=== PATIENT | male | born 1950 | race Caucasian/White ===

== ENCOUNTER 2016-11-01 10:00 | Inpatient (IN) | payer MEDICARE, OTHER ==
[~2016-11-01] VITALS: Ht 167.6 cm; Wt 97.6 kg
--- NOTE | ~2016-11-01 | DS ---
PATIENT'S NAME: WILLIS AYALA [facility] AGE: 66 Y [address] ROOM: [address] [place], [place] [address] LOCATION: [facility] [place] ADMIT DATE: 11/01/2016 Discharge Summary DISCHARGE DATE: 11/06/2016 FAMILY PHYSICIAN: Joana Sauer MD ATTENDING PHYSICIAN: Han Albert PRIMARY DIAGNOSES: 1. Chronic diarrhea, probably secondary to diabetic autonomic neuropathy. 2. Diabetes, type 2 with hypoglycemia. 3. Chronic kidney disease, stage 3. 4. Obstructive sleep apnea. PRINCIPAL PROCEDURES: Done for the patient include colonoscopy by Dr. Warner. LABORATORY DATA: Labs during the hospital stay, ABG venous: PH 7.29. WBC on admission was 12.9 and prior to discharge was 9.8. H and H were stable throughout the hospital stay at 13.8/37.8. Platelets were 121. Sodium was markedly stable throughout hospital stay; the highest level obtained was 146 and prior to discharge was 138. Potassium on discharge was 3.5, and was repleted prior to discharge. Phosphorus lowest level obtained was 1.3, was repleted, and prior to discharge was 3.0. Hemoglobin A1c was 6.8. Vitamin B12 level was 304 and folate was 15.2. Procalcitonin on admission was 0.27 and repeat was 0.24. Serotonin release assay was still pending at the time of discharge. Antibody to tissue transglutaminase value was less than 0.5. CMV DNA to PCR was not detected on the colon biopsy. Microbiology stool analysis, fecal fat was negative. Stool for C. diff was negative. Stool for white blood cells was not observed. Occult blood was positive. Pathology report on the colon biopsy, small bowel mucosa; terminal ileum biopsies with normal villous architecture without diagnostic alteration. Negative for CMV cytopathic change. Colonic mucosa random biopsies, no diagnostic alterations. Negative for colitis. Negative for CMV cytopathic change. RADIOLOGY: Chest x-ray, no acute infiltrate. Renal ultrasound with mildly atrophic-appearing kidneys bilaterally, worse on the right side. Right renal cyst measuring 1.4 cm. No evidence of hydronephrosis or solid renal mass. HOSPITAL COURSE: For history of present illness, please take a look at the H and P, which was done by Dr. Albert. The patient was admitted to Medical- Surgical Unit, and had a GI consult for his chronic diarrhea. After the patient was reviewed by the Gastroenterology team, they recommended a colonoscopy, and also recommended the patient to be on rifaximin as a presumptive treatment for bacterial overgrowth. Also, the patient did get a PATIENT'S NAME: WILLIS AYALA [facility] AGE: 66 Y [address] ROOM: [place] [address] LOCATION: [facility] ADMIT DATE: 11/01/2016 Discharge Summary DISCHARGE DATE: 11/06/2016 FAMILY PHYSICIAN: Joana Sauer MD ATTENDING PHYSICIAN: Han Albert Renal consult, given his acute kidney injury on chronic kidney disease. For this, his nephrotoxic medications of lisinopril and hydrochlorothiazide were put on hold by the sales development representative. By the next day, the patient did get his colonoscopy done. Procedure was well tolerated by the patient without any intraoperative or postoperative complications. Following this, he was continued on his rifaximin. Plan was for him to get this for a total of 10 days. His stool studies too were negative for C. diff and negative for any ova and parasite. Following this, he was started on the Imodium. With progression in his hospital stay, his frequency of diarrhea did get better. It reduced down to about 6 to 7 per day with improved consistency. The Renal team did recommend to re-start his hydrochlorothiazide by the 05 of November, and also recommended to re-start his lisinopril by the . Following this, they signed off. The Imodium which the patient was placed on did not do much as to help with the frequency of his diarrhea. Following the pathology report of his colon biopsy, it was concluded that most probably the patient's chronic diarrhea could be as a complication of his diabetes resulting from diabetic autonomic neuropathy. At this point, GI recommended for patient to be on Lomotil, which helped to reduce the frequency of his diarrhea significantly to about 2 to 3 per day prior to discharge. During his hospital stay, he did also complain of some loss of appetite, which improved with his hospital stay. His diabetes was also within reasonably good control as well during his hospital stay. His GFR also was stable with some improvement, and during his hospital stay, he did also develop some hyponatremia which improved with D5 water. On the day of discharge, the patient's frequency of diarrhea had reduced to two, with also improved consistency in his stool. He was in high spirits and wanted to be discharged, and the patient was discharged home while his vital signs were stable. DISCHARGE INSTRUCTIONS: Include he is to follow up with his family doctor in the next 3 to 4 days. He has a GI Clinic appointment in two weeks. MEDICATIONS UPON DISCHARGE: Include 1. Norvasc 10 mg p.o. daily. 2. Chlorthalidone 25 mg p.o. daily. 3. Gabapentin 900 mg p.o. at bedtime. 4. Insulin lispro subcu 3 times daily with meals. 5. Lantus 20 units subcu twice daily. 6. Lisinopril 10 mg p.o. daily. 7. Metoprolol 12.5 mg p.o. twice daily. 8. Zocor 20 mg p.o. at bedtime. 9. Trazodone 50 mg p.o. at bedtime. 10. Imodium 2 mg p.o. as needed for each loose stool. 11. Multivitamin one tablet p.o. daily. 12. Sublingual nitroglycerin 0.4 mg tablet p.r.n. 13. CPAP. PATIENT'S NAME: WILLIS AYALA [facility] AGE: 66 Y [address] ROOM: [place] [address] LOCATION: [facility] ADMIT DATE: 11/01/2016 Discharge Summary DISCHARGE DATE: 11/06/2016 FAMILY PHYSICIAN: Joana Sauer MD ATTENDING PHYSICIAN: Han Albert 14. Vitamin B12, 1000 mcg p.o. q.a.m. 15. Tylenol Extra Strength 1 g p.o. q.6 hours. 16. Melatonin 5 mg p.o. at bedtime. 17. Lomotil 5 mg q.6 hours p.o. p.r.n. 18. Rifaximin 550 mg t.i.d. p.o. for an additional of eight more days to make it a total of ten days of rifaximin. Discharge time spent on this patient was approximately 35 minutes, which included extensive counseling on his diabetes control. MD ISRAEL HARTMAN/modl /[id number] d: 11/07/16 0424 t: 11/10/16 1429, DISCHARGE SUMMARY
--- NOTE | ~2016-11-01 | HP ---
PATIENT'S NAME: WILLIS AYALA [facility] AGE: 66 Y [address] ROOM: [address] [place], [place] [address] [place]: [facility] [place] ADMIT DATE: 11/01/2016 History & Physical DISCHARGE DATE: FAMILY PHYSICIAN: DANIELA DERAS MD ATTENDING PHYSICIAN: AMINA ESPINOSA DATE OF SERVICE: CHIEF COMPLAINT: Daily watery diarrhea of green and yellow color associated with decreased appetite and weight loss with onset of 4 weeks ago. HISTORY OF PRESENT ILLNESS: This is a 66-year-old male, who says that roughly 4 weeks ago, he started to experience loose stool roughly about 3-4 episodes per day for the first week and then followed by 2-3 episodes of loose stool per hour in the last 2 weeks on a daily basis. The loose stool is described as a watery diarrhea with yellow and greenish color. He states that a few times, but very few times he saw maybe some black stool, but is not every single time. He does not feel well in general. Therefore, he has been having very poor appetite, has not been eating or drinking much. He has lost about 30 pounds in the last 4 weeks. He denies any fever or chills, chest pain or shortness of breath, nausea or vomiting, or any abdominal pain. He also denies any recent outside the state travel or any sick contact or eating anything different recently. He also has never had this problem before. He also noticed some decrease in urine output in the last 4 weeks as well. The patient was evaluated in the outside facility, and multiple studies were performed including a CT of the abdomen and pelvis with oral contrast due to the kidney failure, that was done yesterday on October 31, 2016. I do not have the official report. But based on the written documentation and the telephone information that was given to me by the transferring physician, it was read as unremarkable. I have put a request for the official reading report to be faxed here. The patient also had stool study including 2 stools negative for C. diff, study was also negative for Helicobacter pylori urea breath test, negative Giardia, negative ova and parasite, and negative for Salmonella and Shigella and Campylobacter. Kidney function was also found to be 2.55 of creatinine and a GFR of 27 yesterday from the outside facility. When I look at our [facility] back in September 2015, his GFR was 34 and creatinine was 2.0 at that time. The patient does know he chronically has CKD stage 3 with GFR baseline 35. The patient was later transferred here for further care. REVIEW OF SYSTEMS: As mentioned in the history of present illness. All other systems were reviewed and they were negative except those mentioned in the history of present illness. PATIENT'S NAME: WILLIS AYALA [facility] AGE: 66 Y [address] ROOM: [place] [address] LOCATION: [facility] [place] ADMIT DATE: 11/01/2016 History & Physical DISCHARGE DATE: FAMILY PHYSICIAN: DANIELA DERAS MD ATTENDING PHYSICIAN: AMINA ESPINOSA PAST MEDICAL HISTORY: 1. Severe aortic stenosis with peak velocity of 4 and mean gradient of 38 mmHg and valve area of 1.33 cm2. This was done on the transthoracic echo back in September 2016. At that time, also showed grade 1 diastolic dysfunction. 2. Hypertension. 3. Diabetes type 1. 4. CKD, stage 3, per patient the GFR banner is 35. 5. Hyperlipidemia. 6. Obstructive sleep apnea, on home CPAP. ALLERGIES: NO KNOWN DRUG ALLERGIES. HOME MEDICATIONS: 1. Tylenol 1 g p.o. every 6 hours p.r.n. pain or fever. 2. Amlodipine 10 mg p.o. daily. 3. Chlorthalidone 25 mg p.o. daily. 4. CPAP at night. 5. Vitamin B12, 1000 mcg p.o. daily. 6. Gabapentin 900 mg p.o. daily. 7. Insulin glargine 22 units subcu twice daily. 8. Insulin lispro sliding scale three times a day with meals. 9. Lisinopril 10 mg p.o. daily. 10. Melatonin 5 mg p.o. every night at bedtime. 11. Lopressor 12.5 mg p.o. b.i.d. 12. Flagyl 500 mg p.o. b.i.d. 13. Multivitamin 1 tablet p.o. daily. 14. Nitroglycerin sublingual 0.4 mg p.r.n. for chest pain. 15. Simvastatin 20 mg p.o. daily at night at bedtime. 16. Trazodone 50 mg p.o. at bedtime. SOCIAL HISTORY: He denies any alcohol or any illegal drug use or cigarette smoking. PAST SURGICAL HISTORY: Status post cataract surgery in the past. FAMILY HISTORY: Father has diabetes type 1 and also from heart failure complication at age 60s. Mother from old age from a cause that he could not remember. PHYSICAL EXAMINATION: PATIENT'S NAME: WILLIS AYALA [facility] AGE: 66 Y [address] ROOM: [place] [address] LOCATION: [facility] [place] ADMIT DATE: 11/01/2016 History & Physical DISCHARGE DATE: FAMILY PHYSICIAN: DANIELA DERAS MD ATTENDING PHYSICIAN: AMINA ESPINOSA VITAL SIGNS: At the time of my dictation, temperature 98, blood pressure is 132/86, respiration is 14, heart rate is 80, saturation is 97% on room air. GENERAL APPEARANCE: Alert and oriented x3, in no acute distress. HEENT: Pupils are equally round and reactive to light. Extraocular muscles are intact. Anicteric sclerae. Nasal turbinates are normal bilaterally. Moist oral mucosa. NECK: No JVD. CARDIOVASCULAR: Murmur about intensity of 4, systolic. Normal S1, S2. Regular rate and rhythm. RESPIRATORY: Clear to auscultation. No rales. No rhonchi. No crackles. No wheezing. ABDOMEN: Soft, nontender, and nondistended. Bowel sounds present. No hepatosplenomegaly. No mass. No abdominal rigidity. EXTREMITIES: Edema in bilateral lower extremity which is chronic for the patient, and they are actually looking better than his usual edema. SKIN: No ulcer. No rash. No cyanosis. MUSCULOSKELETAL: No joint pain and also no muscle pain. NEUROLOGIC: Grossly nonfocal. LABORATORY DATA: White blood cell 10.1, hemoglobin 15.1, hematocrit 42.8, platelet 134. Glucose 196, BUN 51, creatinine 2.5, sodium 139, potassium 3.7, chloride 113, CO2 of 16, calcium 8.6, total protein 7.8, albumin 3.7, AST 29, ALT 38, alkaline phosphatase 85, total bilirubin 0.5, direct bilirubin 0.2, phosphorus 3.3, magnesium 2.4, anion gap 13.7, GFR 26. ESR pending. Hemoglobin A1c pending. INR 1.03. PTT 31. IMAGING STUDIES: CT scan of the abdomen and pelvis with oral contrast performed on October 31, 2016, from the outside facility: I have requested official written report to be faxed here. Based on the verbal report given to me over the phone by the outside transfer facility physician, it was unremarkable. ASSESSMENT AND PLAN: 1. Regarding his refractory diarrhea: I will consult Gastroenterology for further evaluation with colonoscopy. Right now, he can have bland diet. Nausea with IV Zofran p.r.n. if necessary. IV fluids for hydration. He has severe aortic stenosis. Therefore, I will give him normal saline at 60 mL/h. Watch for volume overload. Oxygen if needed by nasal cannula for saturation more than 94%. I will not repeat any stool study because everything was done already from the outside facility and all came back negative including Clostridium difficile twice, Campylobacter, Shigella, Salmonella, parasite and also ova. They all came back negative, PATIENT'S NAME: WILLIS AYALA [facility] AGE: 66 Y [address] ROOM: [place] [address] LOCATION: [facility] [place] ADMIT DATE: 11/01/2016 History & Physical DISCHARGE DATE: FAMILY PHYSICIAN: DANIELA DERAS MD ATTENDING PHYSICIAN: AMINA ESPINOSA including Helicobacter pylori from the urea breath test. The patient does not look septic to me. He does not have any leukocytosis. I think infectious cause is less likely. For now, continue with supportive care and wait for the colonoscopy procedure. I will also put a request for the outside facility to fax here the written report of the CT abdomen and pelvis that was done yesterday. Further plan will depend on the clinical course. 2. Regarding his severe aortic stenosis: Currently, the patient does not look volume overloaded. Actually, he looks dehydrated. I will give him IV fluids with normal saline at 60 mL/h slow rate maintenance, but continuously and watch carefully for volume overload and at the same time keep him hydrated. Increase oral intake. 3. Regarding his hypertension: Hold the blood pressure medication. Can resume if necessary. 4. Regarding his diabetes type 1: I will check A1c. Also use home insulin with Levemir, but I will cut down by half by using 11 units twice a day. I will also put sliding scale with moderate dose with NovoLog q.4 hours. In addition, I will do a carb count with 1 unit for 15 g of carb intake. Titrate the insulin dose as necessary. 5. Regarding his acute kidney injury on chronic kidney disease stage 3: IV hydration as mentioned before. In addition, I will do a complete abdominal ultrasound to look for the hydronephrosis or any kidney anatomy problem. In addition, I will put a Samuels catheter and also do strict in's and out's. I will get a urinalysis. I will do urine electrolytes. Further plan will depend on clinical course. Hydration with 3 amps of 50meq sodium bicarb then bicarb drip starting at 100cc and titrate as needed per renal panel. If initial hydration does not improve his kidney failure, will consult Nephrology. In addition, I will order urine protein creatinine ratio. I will watch his volume status carefully due to his severe aortic stenosis. 6. Regarding his obstructive sleep apnea: Continue home CPAP that the patient brought from home. 7. Regarding his deep venous thrombosis prophylaxis: I will hold the pharmacological agent in anticipation for a colonoscopy tomorrow. For now, I will do compression devices. CODE STATUS: He is a full code. Time spent in care on the day of admission was 50 minutes, where minutes for 30 minutes was spent on chart review, interview, and also physical examination. The remainder of time was spent on counseling, including going over the plan of care and also addressing all their questions to their satisfaction. The and the patient were in the room. Further plan depends on clinical course. AMINA ESPINOSA MD PATIENT'S NAME: WILLIS AYALA [facility] AGE: 66 Y [address] ROOM: [place] [address] LOCATION: [facility] [place] ADMIT DATE: 11/01/2016 History & Physical DISCHARGE DATE: FAMILY PHYSICIAN: DANIELA DERAS MD ATTENDING PHYSICIAN: AMINA ESPINOSA/david /[id number] D: T: 021 HISTORY & PHYSICAL
--- NOTE | ~2016-11-01 | CON ---
PATIENT'S NAME: WILLIS AYALA [facility] AGE: 66 Y [address] ROOM: [address] [place], [place] [address] LOCATION: [facility] ADMIT DATE: 11/01/2016 Consultation DISCHARGE DATE: FAMILY PHYSICIAN: DANIELA DERAS MD ATTENDING PHYSICIAN: HAN ESPINOSA DATE OF CONSULTATION: 11/02/2016 REFERRING PHYSICIAN: Han Espinosa MD REASON FOR CONSULTATION: Diarrhea and weight loss. HISTORY OF PRESENT ILLNESS: This is a very pleasant 66-year-old male who states approximately 4 weeks ago, he began to experience loose stools, roughly 3-4 episodes per day. Over the past 2 weeks, the frequency has increased to 4 bowel movements per hour. He describes the diarrhea as watery diarrhea with yellow and greenish color. He states that at some point, there could have been some "black stool," but not every single time. He denies any associated symptoms except for weight loss. He does state that he has lost approximately 30 pounds in the past month. He denies any associated fever, chills, chest pain, chest pressure, shortness of breath, nausea, vomiting, or abdominal pain. Occasionally, he will have some abdominal cramping prior to having a bowel movement. He has undergone an evaluation at outside facility with multiples stool studies as well as CT of the abdomen and pelvis due to kidney failure as this report is currently pending. Stool studies have been completed x2 with negative for C diff as well as Helicobacter pylori urea breath test. On evaluation, initial kidney function showed a creatinine of 2.55, a GFR of 27. The patient was then transferred to [facility] for definitive care. The patient was seen and examined. He again states that over the past 2 weeks, the frequency of the bowel movements have increased. He states that he has trouble sleeping secondary to having numerous bowel movements. He denies any associated bob abdominal pain with this. He has never had this type of episodes prior to his initial presentation. The patient currently denies any chest pain, chest pressure, shortness of breath, fever, or chills. He does state that he has had a 30-pound weight loss over the past month. PAST MEDICAL HISTORY: Severe aortic stenosis; grade 1 diastolic dysfunction; hypertension; diabetes type 1; chronic kidney disease stage III; hyperlipidemia; obstructive sleep apnea, on home CPAP. PAST SURGICAL HISTORY: Status post cataract surgery. He denies any history of colonoscopy. PATIENT'S NAME: WILLIS AYALA [facility] AGE: 66 Y [address] ROOM: [address] [place], [place] [address] LOCATION: [facility] [place] ADMIT DATE: 11/01/2016 Consultation DISCHARGE DATE: FAMILY PHYSICIAN: DANIELA DERAS MD ATTENDING PHYSICIAN: HAN ESPINOSA SOCIAL HISTORY: The patient is a ramon. He is . He denies any alcohol, tobacco, or illicit drug use. FAMILY HISTORY: The patient's father has diabetes type 1, and also from heart failure. The patient's mother from old age. ALLERGIES: NO KNOWN MEDICATION ALLERGIES. CURRENT MEDICATIONS: Please refer to the medication administration record. REVIEW OF SYSTEMS: An all-point review of systems was completed. All were negative except for those identified in the history of present illness. PHYSICAL EXAMINATION: GENERAL: A very pleasant, 66-year-old male, who appears to be in no acute distress. VITAL SIGNS: Temperature 97.6, pulse of 56, respirations of 18, blood pressure 139/64, oxygen saturation is 95% on room air. SKIN: [place], warm, dry. No jaundice. HEENT: Head is normocephalic and atraumatic. Pupils are equal, round, and reactive to light. Sclerae are clear. Nonicteric. Oral mucosa is pink and moist. No thyromegaly. NECK: Soft and supple. CARDIOVASCULAR: Regular. Normal S1, S2. RESPIRATORY: Respirations are even and unlabored. LUNGS: Clear to auscultation. ABDOMEN: Soft, round, nontender, and nondistended. Bowel sounds positive x4 quadrants. MUSCULOSKELETAL: No muscle weakness or atrophy. EXTREMITIES: No clubbing, cyanosis, or edema. NEUROLOGIC: Grossly nonfocal. LABS AND DIAGNOSTICS: Laboratory obtained at [facility] did include a CBC with a white blood cell count of 10.1, hemoglobin of 15.1, hematocrit of 42.8, and platelets of 134. Chemistry panel includes a glucose of 196, BUN of 51, creatinine 2.5. Sodium 139, potassium 3.7, chloride of 113, CO2 of 16. Liver function tests are within normal limits. PATIENT'S NAME: WILLIS AYALA [facility] AGE: 66 Y [address] ROOM: [address] [place], [place] [address] LOCATION: [facility] [place] ADMIT DATE: 11/01/2016 Consultation DISCHARGE DATE: FAMILY PHYSICIAN: DANIELA DERAS MD ATTENDING PHYSICIAN: HAN ESPINOSA ASSESSMENT AND PLAN: Again, this is a very pleasant, 66-year-old gentleman who was transferred to [facility] for definitive care. He has had a diarrhea over the past 4 weeks, though has intensified in the past 2 weeks with numerous bowel movements that he states are loose and watery without any blood or melena. The patient at this time is complaining of 4 episodes per hour. He denies any history of colonoscopy. In review of the patient's record, this could be diabetic diarrhea, though the patient denies any history of colonoscopy. We will complete a colonoscopy to evaluate the mucosa as well as obtain biopsies to rule out microscopic colitis. The patient will be given Suprep in preparation for the procedure. Further recommendations will be given status post colonoscopy. Thank you for this consult. VALDO ANDERSON APRN FOR MD AVELINO GONZALEZ/david /[id number] d: 11/02/16 0843 t: 11/08/16 0748, CONSULTATION REPORT
--- NOTE | ~2016-11-01 | CON ---
PATIENT'S NAME: WILLIS AYALA [facility] AGE: 66 Y [address] ROOM: [id number] [place], [place] [address] LOCATION: [facility] [place] ADMIT DATE: 11/01/2016 Consultation DISCHARGE DATE: FAMILY PHYSICIAN: DANIELA DERAS MD ATTENDING PHYSICIAN: AMINA ESPINOSA DATE OF CONSULTATION: 11/02/2016 REFERRING PHYSICIAN: Dr. Espinosa REASON FOR CONSULTATION: KIA on CKD. HISTORY OF PRESENT ILLNESS: A 66-year-old male with a history of hypertension, diabetes, CKD, stage 3 with baseline creatinine of around 2, hyperlipidemia, obstructive sleep apnea on home CPAP, severe aortic stenosis, admitted with a 1-month worth of diarrhea. The patient was also found to have some KIA with the creatinine went up from 2 to 2.5; although, nonoliguric. Nephrology consultation has been called for the same reason. The patient was apparently having loose stool roughly about 3-4 episodes per day initially and then slowly the frequency went up to 2 to 3 episodes of loose stool per hour for the last 2 weeks on a daily basis. Stool has been watery with yellow or greenish color and also has noticed some black tarry stool, having very poor appetite without much eating or drinking, and lost about 30 to 35 pounds in 4 weeks. Denied any fevers or chills. No chest pain, shortness of breath, nausea, vomiting, or abdominal pain. Notably, he also follows with Dr. Babb food technologist at [facility] in [place] and he was taking chlorthalidone for his hypertension. He was initially admitted to [facility], where they did a CT of abdomen and pelvis with oral contrast, which was apparently unremarkable and also the infectious workup came back negative. The patient had a colonoscopy today, which was essentially negative; but however, the biopsy report is still pending. He denied any urinary symptoms including dysuria, urgency, hesitancy, or nocturia. REVIEW OF SYSTEMS: GENERAL: No fever. No chills or rigor. HEENT: No sore throat. No sinus congestion. CVS: No chest pain. No exertional shortness of breath. No leg swelling. RESPIRATORY: No shortness of breath. No cough. No wheezing. GENITOURINARY: No pain with urination. No increased frequency. No nocturia. GASTROINTESTINAL: Complained of poor appetite, nausea, and diarrhea as mentioned in the HPI. NEUROLOGIC: No weakness. No seizures. SKIN: No rash. No itching. ALLERGIES: No seasonal allergy. No hayfever. ENDOCRINE: No heat intolerance. No cold intolerance. PSYCHIATRIC: No sadness. No crying spells. No history of panic attack. PATIENT'S NAME: WILLIS AYALA [facility] AGE: 66 Y [address] ROOM: [place] [address] LOCATION: [facility] [place] ADMIT DATE: 11/01/2016 Consultation DISCHARGE DATE: FAMILY PHYSICIAN: DANIELA DERAS MD ATTENDING PHYSICIAN: AMINA ESPINOSA ALLERGIES: NO KNOWN DRUG ALLERGIES. HOME MEDICATIONS: As per the chart. PAST MEDICAL HISTORY: 1. Severe aortic stenosis. 2. Hypertension. 3. Diabetes, type 1, insulin-dependent. 4. CKD, stage 3, prior baseline creatinine of 2, estimated GFR of 35. 5. Hyperlipidemia. 6. Obstructive sleep apnea, on CPAP. SOCIAL HISTORY: Denies alcohol, illegal drugs, or cigarette smoking. PAST SURGICAL HISTORY: Status post cataract surgery in the past. FAMILY HISTORY: Diabetes, type 1. Father had diabetes and heart failure, complication of heart failure at age 60 and from that. His mother from old age, but the exact cause is unknown. PHYSICAL EXAMINATION: VITAL SIGNS: Blood pressure 140s/60s, pulse 60, respiratory rate 16, and temperature 97.5. GENERAL: Not in apparent distress. HEAD: Dry mucous membrane. Atraumatic normocephalic. Bilateral PERRLA, EOMI. NECK: No JVD, thyromegaly or lymphadenopathy. CVS: S1 and S2 normal, regular rate and rhythm. No murmur, rub, gallop. CHEST: Bilateral air entry equal. No wheeze or rales. ABDOMEN: Soft, nontender, nondistended. Bowel sounds present. EXTREMITIES: No cyanosis, clubbing, jaundice. No dependent edema. MUSCULOSKELETAL: No limitation of range of motion. SKIN: No pallor, cyanosis, icterus. HOME CARE ADMINISTRATOR: Alert and oriented x3. No gross findings. LABORATORY DATA: WBC count 11.3, hemoglobin 14.1, and platelets 134. Chemistry sodium 144, potassium 3.1, chloride 114, bicarbonate 18, BUN 53, creatinine 2.5, glucose 240, calcium 8.5, total protein 7.8, and albumin 3.7. ESR 28. A1c 6.8, INR 1.03. Urinalysis specific gravity 1.020 with 1+ turbidity, 5 pH, trace leukocytes, positive protein, negative for glucose, blood, and bacteria. Urine wkauagp-gd-bnqdobrbpt ratio is 0.3, urine sodium is 29, urine creatinine is 125, procal is 0.27, urine urea is 740.PATIENT'S NAME: WILLIS AYALA [facility] AGE: 66 Y [address] ROOM: [address] [address] LOCATION: [facility] [place] ADMIT DATE: 11/01/2016 Consultation DISCHARGE DATE: FAMILY PHYSICIAN: DANIELA DERAS MD ATTENDING PHYSICIAN: AMINA ESPINOSA ASSESSMENT: 1. Acute kidney injury on chronic kidney disease, 3, baseline creatinine apparently 2, now is 2.5, currently nonoliguric. Syncope is presumably from hypertensive nephrosclerosis versus diabetic nephropathy, but without significant proteinuria, it point against diabetic nephropathy. Acute kidney injury is possibly secondary to acute tubular necrosis with significant diarrhea with poor oral intake while being on diuretic. We would recommend volume expansion for now; however, acute tubular necrosis will follow its own course and will take time initially to creatinine will go up then will stabilize before showing some improvement. We will strongly encourage to avoid nephrotoxins including NSAIDs and contrast media, hold chlorthalidone for now, which can best fit for the dehydration, avoid any hemodynamic insults and keep the MAP more than 65. Do a renal ultrasound. We will do a UA and urine lytes tomorrow again. Please do strict intake and output and daily standing weight. Regarding fluid administration, we will continue bicarb at 120 mL/hr for now. 2. Diabetes, type 1, with some evidence of diabetic retinopathy; however, no significant laser surgery in the past. Currently, on insulin and we will defer that management to the primary team. 3. Diarrhea, persistent for almost a week, has been persistent for almost a month. Colonoscopy essentially negative, infectious workup negative, biopsies pending for possible microscopic colitis or lymphocytic colitis; however, we also may need to rule out small bowel bacterial overgrowth especially in condition of diabetes. 4. Hypertension, withhold chlorthalidone, and continue amlodipine for now. We will see the blood pressure results and adjust dosing accordingly. 5. Hyperlipidemia, defer to the primary team. Thank you for allowing me to participate in this patient's care. We will closely monitor the patient's progress along with you. SINDY DESIR MD /david /[id number] d: 11/03/16 0045 t: 11/05/16 1011, CONSULTATION REPORT
[~2016-11-01 10:00] MED LIST: **HUMALOG*100 UNIT/M SUB-Q; CPAP INH; DESYREL50 MG PO; HUMALOG100 UNIT/3 SUB-Q; HYGROTON25 MG PO; LANTUS (IN100 UNIT/M SUB-Q; LOPRESSOR25 MG PO; NEURONTIN300 MG PO; NITROSTAT0.4 MG SL; NORVASC10 MG PO; PRINIVIL OR ZES10 MG PO; THERAGRAN-M1 TAB PO; TYLENOL PM EX-1 EACH PO; ZOCOR20 MG PO
[2016-11-01] MEDS ORDERED: HYGROTON25 MG PO (14:25)
[2016-11-01] MEDS ORDERED: VITAMIN B-121000 MCG PO (14:25)
[2016-11-01] MEDS ORDERED: MELATONIN5 M2 PO (14:26)
[2016-11-01] MEDS ORDERED: TYLENOL EXTRA500 MG PO (14:26)
[2016-11-01] MEDS ORDERED: FLAGYL500 M1 PO (14:47)
[2016-11-01 15:00] LABS: BASOPHIL % 0.4 %; EOSINOPHIL # 0.1 K/uL (0.0-0.5); EOSINOPHIL % 0.9 %; HEMATOCRIT 42.8 % (37.0-53.0); HEMOGLOBIN 15.1 g/dL (11.0-16.0); IMMATURE GRANULOCYTE % 0.2 %; LYMPHOCYTE % 10.2 %; MCH 31.1 pg (27.0-34.0); MCHC 35.3 gm/dL (32.0-36.5); MCV 88.1 fl (83.0-98.0); MONOCYTE # 0.5 K/uL (0.0-1.0); MONOCYTE % 4.8 %; MPV 9.3 fl (9.4-12.4); NEUTROPHIL # (ANC) 8.4 K/uL (1.4-9.0); NEUTROPHIL % 83.5 %; NRBC % 0 /100WBC (0-0.00); PLATELET COUNT 134 K/uL (150-450); RBC 4.86 M/uL (3.50-5.50); RDW-CV 12.3 % (11.9-14.6); WBC 10.1 K/uL (4.0-11.0)
--- NOTE | 2016-11-01 15:00 | NUR ---
Pt is 66 y/o male admit for diarrhea/dehydration for hospitalist. Pt alert and oriented x3. Resides at home with his . No allergies. Pt unsteady due to knee OA and weakness. Having frequent stools about every 15-20 minutes. Hx sleep apnea-wears CPAP,htn,hypercholest,valve disease,murmur,diarrhea x 4 weeks,chronic renal disease,nocturia,DM type 1. Came via private car from [place]. at bedside.
[2016-11-01 15:14] LABS: INR - (THERAPEUTIC) 1.03 (0.92-1.07); PROTIME 10.8 SECONDS (9.8-11.4); PTT 31 SECONDS (25-32)
[2016-11-01 15:22] LABS: ALBUMIN 3.7 gm/dL (3.5-5.0); CALCIUM 8.6 mg/dL (8.5-10.5); CREATININE 2.5 mg/dL (0.6-1.3); MAGNESIUM 2.4 mg/dL (1.8-2.6); PHOSPHORUS 3.3 mg/dL (2.5-4.9); POTASSIUM 3.7 mMol/L (3.7-5.1); TOTAL BILIRUBIN 0.5 mg/dL (0.0-1.5); TOTAL PROTEIN 7.8 g/dL (6.0-8.4)
[2016-11-01 15:23] LABS: ANION GAP 13.7 (10.0-19.0)
--- NOTE | 2016-11-01 18:11 | NUR ---
Significant Event: PT AO. VSS ON RA, WEARS CPAP AT HS. ORDERS RECIEVED TO KEEP SATS >94%. GI CONSULTED. CLEAR LIQUID DIET, NO REDS OR PURPLES. TO HAVE ABDOMINAL ULTRASOUND IN AM, NEEDS TO BE NPO PRIOR TO. ORDERS FOR NPO AFTER 0500 FOR COLONOSCOPY. UA SENT TO LAB. GOOD PLACED. 24HR URINE STARTED AT 1800. NEED A STOOL SENT TO LAB. TO BE Q4HR ACCUCHECKS. WILL BE MODERATE SLIDING SCALE, CARB COUNT. NEEDS PERMITS SIGNED FOR COLONOSCOPY STILL. AT BEDSIDE. VERY KNOWLEDGEABLE. Follow up: 24HR URINE, Q4HR CHECKS, NEEDS STOOL SAMPLE, SIGN PERMITS
--- NOTE | 2016-11-01 19:02 | NUR ---
I HAVE REVIEWED AND AGREE WITH CHARTING COMPLETED BY [facility] STUDENT ROSELINE BROOKS FROM [phone] YVONNE AMES
[2016-11-01 19:21] LABS: BILIRUBIN URINE NEGATIVE (NEGATIVE); BLOOD URINE NEGATIVE /UL (NEGATIVE); COLOR URINE YELLOW (YELLOW); GLUCOSE URINE NEGATIVE (NEGATIVE); KETONE URINE 5 mg/dL (NEGATIVE); LEUKOCYTES URINE 25 /UL (NEGATIVE); NITRITE URINE NEGATIVE (NEGATIVE); PROTEIN URINE 30 mg/dL (NEGATIVE); TURBIDITY URINE 1+ (CLEAR); UROBILINOGEN URINE NORMAL (NORMAL)
[2016-11-01 19:41] LABS: AMORPHOUS URINE 2+ (NEGATIVE)
[2016-11-01 19:42] LABS: BACTERIA URINE NEGATIVE (NEGATIVE); EPITHELIAL URINE 0-2 #/HPF (NEGATIVE); RBC URINE 0-2 #/HPF (NEGATIVE); WBC URINE 0-2 #/HPF (NEGATIVE)
[2016-11-01 19:44] LABS: MUCUS URINE 1+ (NEGATIVE)
[2016-11-02 00:54] LABS: BICARBONATE 17.8 mmol/L (18.0-23.0); PCO2 37 mmHg (35-45); PO2 55 mmHg (80-90)
[2016-11-02 03:15] LABS: HEMATOCRIT 41.1 % (37.0-53.0); HEMOGLOBIN 14.8 g/dL (11.0-16.0); MCH 31.1 pg (27.0-34.0); MCV 86.3 fl (83.0-98.0); MPV 9.5 fl (9.4-12.4); RBC 4.76 M/uL (3.50-5.50); RDW-CV 12.1 % (11.9-14.6); WBC 12.9 K/uL (4.0-11.0)
[2016-11-02 03:32] LABS: ANION GAP 16.3 (10.0-19.0); CALCIUM 8.5 mg/dL (8.5-10.5); CREATININE 2.6 mg/dL (0.6-1.3); POTASSIUM 3.3 mMol/L (3.7-5.1)
--- NOTE | 2016-11-02 05:28 | NUR ---
Significant Event: Patient alert and oriented X4. Up with stand by assist. is nurse and helps him. Frequent stools this shift. Started on rifaximin to help. Suprep given X1, stools now chicken broth color. Stool negative for c-diff and fecal fat. Labs off so Dr. Albert ordered sodium bicarb amps X3 and then to start d5 with sodium bicarb now running at 120ml to L) wrist. Denies pain. Had one emesis of 300ml when having stools. US this morning. NPO at 0000 for colonoscopy and EGD in am. q 4 hours accuchecks. changed to aggressive sliding scale. 24 hour urine in progress and started at 1800 on 11/01. 40meq potassium given X1 at 0430. Patinet would like to shower before colonoscopy Follow up:
[2016-11-02 07:57] LABS: BICARBONATE 19.1 mmol/L (18.0-23.0); PCO2 37 mmHg (35-45); PO2 54 mmHg (80-90)
[2016-11-02 08:57] LABS: ANION GAP 15.1 (10.0-19.0); CALCIUM 8.5 mg/dL (8.5-10.5); CREATININE 2.5 mg/dL (0.6-1.3); POTASSIUM 3.1 mMol/L (3.7-5.1)
[2016-11-02 09:11] LABS: BASOPHIL % 0.3 %; EOSINOPHIL % 0.4 %; HEMATOCRIT 38.8 % (37.0-53.0); HEMOGLOBIN 14.1 g/dL (11.0-16.0); IMMATURE GRANULOCYTE % 0.4 %; LYMPHOCYTE % 8.8 %; MCHC 36.3 gm/dL (32.0-36.5); MCV 85.3 fl (83.0-98.0); MONOCYTE # 0.7 K/uL (0.0-1.0); MONOCYTE % 6.5 %; MPV 9.2 fl (9.4-12.4); NEUTROPHIL # (ANC) 9.5 K/uL (1.4-9.0); NEUTROPHIL % 83.6 %; NRBC % 0 /100WBC (0-0.00); PLATELET COUNT 134 K/uL (150-450); RBC 4.55 M/uL (3.50-5.50); RDW-CV 12.2 % (11.9-14.6); WBC 11.3 K/uL (4.0-11.0)
--- NOTE | 2016-11-02 10:38 | NUR ---
Received orders to begin Physical Therapy. Pt off floor for rest of morning secondary to colonoscopy. Will attempt to evaluate this afternoon. Amy Spaulding, PT
--- NOTE | 2016-11-02 11:48 | NUR ---
Met with patient and his at bedside today. Introduced myself and explained by role with the CM department. Per patient he lives at home with his who is a retired nurse. 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 His plan is to return home with is once medically cleared for discharged. and patient deny any discharge needs or concerns. Will continue to follow.
--- NOTE | 2016-11-02 14:50 | NUR ---
Occupational Therapy Note: OT attempted to see pt in the a.m. however pt was out for a colonoscopy. OT will check back later as appropriate and able. Enoch Rose, YENNIFERR/L
--- NOTE | 2016-11-02 16:38 | NUR ---
Significant Event: PT AO. VSS ON RA, AFEBRILE. WEARS CPAP AT HS. AT BEDSIDE. UP AD KARINA IN ROOM WITH . HAD ABDOMINAL ULTRASOUND THIS AM, COLONOSCOPY THIS AFTERNOON. STARTED ON A LACTATE FREE DIET. BICARB RUNNING TO L FA, RECIEVED 40MEQ KCL IV THIS AFTERNOON AND ORDERS RECIEVED FOR ANOTHER 40MEQ IV. 20MEQ KCL PO ALSO GIVEN. STARTED ON IMODIUM TO HAVE AFTER EACH LOOSE STOOL. SALINE LOCK TO L WRIST, IVF RUNNING TO L FA. Q 4HR ACCUCHECKS, AGGRESSIVE SLIDING SCALE. NEPHROLOGY CONSULTED, DR DESIR CAME TO SEE BUT PT WAS IN ENDO AND IS TO RETURN STILL. PT/OT WORKING WITH. PT SHOWERED THIS AM. GOOD PATENT, 24HR URINE COLLECTION IN PROGRESS. TO BE COMPLETED AT 1800. ORDERS RECIEVED TO SEND STOOL TO LAB. STILL NEEDS COLLECTED. Follow up: STOOL SAMPLE, POTASSIUM AT 1999- CALL RESULTS TO
[2016-11-02 20:27] LABS: ANION GAP 11.2 (10.0-19.0); CALCIUM 7.9 mg/dL (8.5-10.5); POTASSIUM 3.2 mMol/L (3.7-5.1)
[2016-11-03 03:33] LABS: BASOPHIL % 0.4 %; EOSINOPHIL # 0.2 K/uL (0.0-0.5); EOSINOPHIL % 2.4 %; HEMATOCRIT 37.8 % (37.0-53.0); HEMOGLOBIN 13.8 g/dL (11.0-16.0); IMMATURE GRANULOCYTE % 0.2 %; LYMPHOCYTE # 2.1 K/uL (0.8-4.0); MCH 31.2 pg (27.0-34.0); MCHC 36.5 gm/dL (32.0-36.5); MCV 85.5 fl (83.0-98.0); MONOCYTE # 0.7 K/uL (0.0-1.0); MONOCYTE % 6.9 %; MPV 9.4 fl (9.4-12.4); NEUTROPHIL # (ANC) 6.8 K/uL (1.4-9.0); NEUTROPHIL % 69.1 %; NRBC % 0 /100WBC (0-0.00); PLATELET COUNT 121 K/uL (150-450); RBC 4.42 M/uL (3.50-5.50); RDW-CV 12.2 % (11.9-14.6); WBC 9.8 K/uL (4.0-11.0)
[2016-11-03 03:49] LABS: ANION GAP 10.4 (10.0-19.0); CALCIUM 8.2 mg/dL (8.5-10.5); CREATININE 1.9 mg/dL (0.6-1.3); POTASSIUM 3.4 mMol/L (3.7-5.1)
[2016-11-03 04:08] LABS: PHOSPHORUS 1.3 mg/dL (2.5-4.9)
--- NOTE | 2016-11-03 04:35 | NUR ---
Significant Event: AAOX3, BUT FORGETFUL. LOW LACTOSE DIET. FAMILY ASSIST. PIV TO LEFT WRIST AND FA. 1999 K: 3.2. NOTIFIED, N/O RECEIVED: IV BICARB REDUCED TO 80ML/HR. 60 MEQ'S OF K ADMINISTERED PO, 20 MEQS OF KCL ADMINISTERED/IV. BMP 1 HOUR POST INFUSION. 329 K: 3.4 NOTIFIED: N/O RECEIVED @ 0505: 30 MILLIMOLES K PHOS IV NOW. CHANGE IVF TO 1/2NS WITH 40 meq BICARB @75ML/HR. 3 BM'S THIS SHIFT, 3 IMODIUM ADMINISTERED POST BM. Follow up:
[2016-11-03 13:51] LABS: ANION GAP 11.4 (10.0-19.0); CREATININE 1.7 mg/dL (0.6-1.3); POTASSIUM 3.4 mMol/L (3.7-5.1)
--- NOTE | 2016-11-03 15:46 | NUR ---
AAOx3. Cooperative with cares. at bedside and assists with cares. IV to RFA w/KPhos infusing (GBR). Frequent liquid BMs w/Imodium given after each upon request for max 16mg/24hr. Tolerating ADA diet well. BS Q4hr on Aggressive SSI and Levimir. Gave 1/2 amp D50% for BS 40 this afternoon. IV s/l'd to RFA w/intermittent Abx. Peritoneal dyalisis in room. Up to chair this afternoon and BSC. Gave Percocet x1 for c/o hip/leg pain with relief.
--- NOTE | 2016-11-04 05:32 | NUR ---
Significant Event: Patient had 4 loose stools last night one for your credit Denies pain. Accucheck at 1900 was 192, at 2300 was 205 and 126 at 0300. Voiding with use of urinal. Showered and ambulated in hallway with . Uneventful night. Follow up: Continue to monitor.
[2016-11-04 05:44] LABS: ANION GAP 12.5 (10.0-19.0); CREATININE 1.6 mg/dL (0.6-1.3); MAGNESIUM 1.8 mg/dL (1.8-2.6); POTASSIUM 3.5 mMol/L (3.7-5.1)
--- NOTE | 2016-11-04 15:20 | NUR ---
AAOx3. Cooperative with cares. Family assists with all cares. BS Q4hrs w/SSI, CC, and Levkushalir. PIV to RFA w/D5NS @75ml/hr. Anorexic. Immodium given after each loose stool, patient will call. Possible d/c home tomorrow.
--- NOTE | 2016-11-05 07:51 | NUR ---
Significant Event: Assumed patient cares at 2100. Pt alert and oriented. Cooperative with cares. Up ad lianna in room. Up ambulating hallways with . Pt has denied any pain or nausea. IV fluids infusing without difficulty. Pt continues to have loose stools. Immodium given x1. Accuchecks remain q4h. Pt did refuse HS sliding scale insulin and 2300 sliding scale insulin. Tolerating diet. VSS. Follow up:
[2016-11-05 11:10] LABS: ANION GAP 10.9 (10.0-19.0); CALCIUM 8.2 mg/dL (8.5-10.5); CREATININE 1.8 mg/dL (0.6-1.3); POTASSIUM 3.9 mMol/L (3.7-5.1)
--- NOTE | 2016-11-05 17:21 | NUR ---
AAOx3. Cooperative with cares. Up in room and hallways w/family and PT. IVF @75ml/hr to RFA. BS Q4hr. Started Lomotil Q6hrs PRN; next dose around 1999. reports pudding consistency BMs. Tolerating small amounts of ADA diet, anorexic. Voiding well per urinal. Gave Tylenol x1 for c/o PAUL w/some relief. If qty of BMs slows, may d/c tomorrow.
[2016-11-06 04:55] LABS: ANION GAP 10.5 (10.0-19.0); CALCIUM 7.8 mg/dL (8.5-10.5); CREATININE 1.8 mg/dL (0.6-1.3); MAGNESIUM 1.8 mg/dL (1.8-2.6); POTASSIUM 3.5 mMol/L (3.7-5.1)
--- NOTE | 2016-11-06 05:05 | NUR ---
Pt. alert and oriented x3. Up in room with . RA - CPAP at [facility]. VSS. Accuchecks every 4 hours. Gave 5 units for supper and 5 additional units at 0300 accucheck. Pt. request to only receive 5 units instead of the 6 units according to the sliding scale order. Lomotil every 6 hours PRN - last dose given at 0230. Still some loose stools this shift. Pleasant and cooperative with cares. Possible d/c today.
[2016-11-06] MEDS ORDERED: IMODIUM2 MG PO (13:44)
[2016-11-06] MEDS ORDERED: LOMOTIL1 TAB PO (13:47)
[2016-11-06] MEDS ORDERED: XIFAXAN550 MG PO (13:49)
--- NOTE | 2016-11-06 14:44 | NUR ---
DISCHARGE: Pt. was were explained discharge instructions and educated on new medications (see discharge summary). Verbalized understanding of teaching, no questions or concerns. Left with all belongings and prescriptions. Taken to front door by aide and driven home by . Pneumo vacc given prior to discharge. IV removed by primary nurse.
--- NOTE | 2016-11-06 15:04 | NUR ---
Patient was discharged at 1445. Had 4 BM's while here, consistency became a little firmer than pudding. 2 voids. Pt's pain at discharge was a 2 and VSS. Pneumovac was given in left deltoid before dismissal and information sheet given as well as verbal instruction about vaccine.
== END 2016-11-06 14:44 | disposition disaster alternative care site (69) | DRG 74 ==
LOC: EDSTATUS 10:00 → GMSU 13:22
PROVIDERS: Hospitalist; Internal Medicine; Nurse Practitioner Family; ADMIT Internal Medicine
PROC: 3E0134Z Introduction of Serum, Toxoid and Vaccine into Subcutaneous Tissue, Percutaneous Approach (ICD-10-PCS; principal; 2016-11-06)
DX: E10.43 Type 1 diabetes mellitus with diabetic autonomic (poly)neuropathy (principal); N17.9 Acute kidney failure, unspecified; E87.0 Hyperosmolality and hypernatremia; E10.22 Type 1 diabetes mellitus with diabetic chronic kidney disease; E86.0 Dehydration; E87.6 Hypokalemia; G47.33 Obstructive sleep apnea (adult) (pediatric); I35.0 Nonrheumatic aortic (valve) stenosis; E10.649 Type 1 diabetes mellitus with hypoglycemia without coma; I12.9 Hypertensive chronic kidney disease with stage 1 through stage 4 chronic kidney disease, or unspecified chronic kidney disease; N18.3 Chronic kidney disease, stage 3 (moderate); Z23 Encounter for immunization
CPT/HCPCS: G0009; J2001; J3480; J7030; J7040; J7050; J7060

== ENCOUNTER 2016-11-19 16:30 | Inpatient (IN) | payer MEDICARE, OTHER ==
[~2016-11-19] VITALS: Ht 172.7 cm; Wt 98.5 kg
--- NOTE | ~2016-11-19 | HP ---
PATIENT'S NAME: WILLIS AYALA [facility] AGE: 66 Y [address] ROOM: [place] [address] LOCATION: [facility] [place] ADMIT DATE: 11/19/2016 History & Physical DISCHARGE DATE: FAMILY PHYSICIAN: DANIELA DERAS MD ATTENDING PHYSICIAN: Lulú ELIAS DATE OF SERVICE: CHIEF COMPLAINT: Diarrhea. HISTORY OF PRESENT ILLNESS: The patient is a 66-year-old gentleman with past medical history of chronic diarrhea, diabetes mellitus type 1, chronic kidney disease, obstructive sleep apnea, and severe aortic stenosis, who presents here from GI office with diarrhea and acute on chronic kidney disease. The patient was recently admitted on November 01, 2016 and was discharged on November 06, 2016 after he presented here with chronic diarrhea. The patient had a 6 weeks of diarrhea and a 30-pound weight loss. The patient had extensive workup including colonoscopy, which was unremarkable, serotonin release assay, which was unremarkable, vasoactive workup that was unremarkable, and also unremarkable antibodies to tissue transglutaminase level. The patient was diagnosed with possible chronic diarrhea secondary to diabetic autonomic neuropathy and was discharged home. However, on November 09, 2016, he went to [facility] for the same issues and was admitted and was treated with IV fluids. The patient was also treated with rifaximin mg t.i.d. for 10 days without improvement of symptoms. The patient still reports that he has close to 6 to 7 amounts of diarrhea a day. Diarrhea is nonbloody. He reports that he has diarrhea a few hours after he eats. The patient was also started on clonidine 0.1 mg and also octreotide without improvement of symptoms. The patient currently denies any chest pain, shortness of breath, abdominal pain, fever, chills, bloody stool, eye pain, skin lesion, and musculoskeletal disturbance. MEDICAL HISTORY: 1. Severe aortic stenosis. 2. Hypertension. 3. Type 1 diabetes. 4. Hyperlipidemia. 5. Obstructive sleep apnea. SURGICAL HISTORY: Colonoscopy and cataract. FAMILY HISTORY: There is type 1 diabetic mellitus that runs in the family. Father has a PATIENT'S NAME: WILLIS AYALA [facility] AGE: 66 Y [address] ROOM: [place] [address] LOCATION: [facility] ADMIT DATE: 11/19/2016 History & Physical DISCHARGE DATE: FAMILY PHYSICIAN: DANIELA DERAS MD ATTENDING PHYSICIAN: Lulú ELIAS history of type 1 diabetes mellitus, and sister also has type 1 diabetes mellitus. SOCIAL HISTORY: The patient is a ramon, lives in [place]. Does not smoke and drink. MEDICATIONS: Currently being reconciled. REVIEW OF SYSTEMS: All systems have been reviewed and are negative except for what I mentioned in the HPI. PHYSICAL EXAMINATION: VITAL SIGNS: Temperature afebrile, blood pressure 105/54, heart rate of 55, respiratory rate of 14, the patient is saturating on room air. GENERAL APPEARANCE: The patient is alert and awake, in no acute distress. HEAD: Normocephalic, atraumatic. EYES: Extraocular muscle intact. NOSE: No nasal discharge. EARS: No ear discharge. MOUTH: Dry oral mucosa. CHEST: Clear to auscultation bilaterally. HEART: Grade 2 systolic murmur heard on right second intercostal. ABDOMEN: Soft, nontender, and nondistended. Bowel sounds present. SKIN: Warm to touch. MUSCULOSKELETAL: Range of motion intact. No obvious joint effusion noted. METAL FURNITURE PANEL COVERER: The patient is alert and oriented x3. Motor and sensory grossly intact. SKIN: Warm to touch. LABORATORY DATA: Acquired from outside hospital from GI office shows sodium of 130, potassium 3.8, creatinine of 4.47, and BUN of 63. ASSESSMENT AND PLAN: 1. Acute on chronic kidney disease. The patient with chronic kidney disease stage 3 with creatinine 1.8, presenting with creatinine of 4.47, etiology is secondary to prerenal due to dehydration because of ongoing diarrhea. When the patient was here, his initial blood pressure was labile with systolic blood pressure in the high 80s and low 90s. The patient was given one bolus of liter IV fluid. We will continue 100 mL an hour IV fluids. To check renal function panel in a.m. 2. Chronic diarrhea. The patient had extensive workup done. He has had colonoscopy and serology workup for celiac disease and carcinoid syndrome. The patient also had unremarkable colonoscopy with biopsy, and PATIENT'S NAME: WILLIS [facility]AL[facility] AGE: 66 Y [address] ROOM: [address] [address] LOCATION: [facility] ADMIT DATE: 11/19/2016 History & Physical DISCHARGE DATE: FAMILY PHYSICIAN: DANIELA DERAS MD ATTENDING PHYSICIAN: Lulú ELIAS also was on rifaximin for 10 days mg t.i.d., which I suspect was for small intestine bacterial overgrowth without improvement. Since the patient has a history of type 1 diabetes mellitus, he is at higher risk for celiac disease. Even the patient has serologies for celiac workup which was unremarkable, I think the patient might benefit from EGD with biopsy and repeat of celiac workup as the patient is at high risk for celiac disease due to his type 1 diabetes mellitus and his current presentation. Discussed case with Dr. Bruno. The patient is to have EGD in the morning. We will keep the patient n.p.o. in the morning. 3. Diabetes mellitus type 1. Since the patient is going to be n.p.o., we will decrease the patient's insulin use. The patient is on Lantus 22 units b.i.d. We will decrease it to detemir 10 units b.i.d. and continue sliding scale insulin. 4. Severe aortic stenosis. The patient currently is being followed by asbestos worker. We will observe him clinically. 5. Hypertension. Due to the patient's labile blood pressure, we will hold all antihypertensive medication. 6. Obstructive sleep apnea. Ongoing. To use home CPAP machine. 7. Obesity. Ongoing. 8. Code status. Discussed full code on admission. Greater than 70 minutes were spent on patient's care, greater than 50% of the time was spent on direct patient's care. All the patient's questions were answered with satisfaction. Also discussed the patient with Dr. Bruno, our GI physician. We will admit the patient for inpatient. We will keep the patient n.p.o. with possible EGD tomorrow. MD LAURI GAMBOA/modl /[id number] D: 36 HISTORY & PHYSICAL
--- NOTE | ~2016-11-19 | ECHO ---
Transthoracic Echocardiography Report (TTE) Demographics Patient Name WILLIS AYALA Date of Study 11/24/2016 Patient Number [id number] Visit Number [id number] Date of 1950 Room Number G3206 Accession Number [id number] Gender Male Age 66 year(s) Referring Juno Baum Clay Structure Builder And Servicer Amanda Carlos [facility], Physician RVJaylene Chino Physician Interpreting Rachel Pearson MD Sales Marketing Manager Physician Supervising Ordering Physician Juno Baum MD, MD/MLP Nurse Stress Jewel Inspector Conclusions Contractility Score Summary Normal Left Ventricular contractility was noted. Summary The estimated left ventricular ejection fraction is 55-60%. Moderate concentric left ventricular hypertrophy. Diastolic assessment reveals Grade I diastolic dysfunction. The left atrium is moderately dilated by LA volume index measurement. Mild mitral regurgitation by color Doppler. Moderate to severe mitral annular calcification. There is severe aortic stenosis by the Continuity Equation. The peak velocity is4.75 m/s, the mean gradient is46 mmHg, and the valve area based on the continuity equation is cm2, stroke volume index is ml/m2. There is mild aortic regurgitation by color Doppler. There is mild pulmonary hypertension. The pulmonary pressure (RVSP) is 49. mmHg. Small to moderate size global pericardial effusion. Procedure Type of Study TTE procedure:2D Echocardiogram. Procedure Date Date: 11/24/2016 Start: 03:53 PM Study Location: Mobile [facility] Indications:Aortic stenosis and Fever of unknown origin. Appropriate Use Criteria: 9 Patient Status: Routine Rhythm: Sinus tachycardia HR: 81 bpm BP: 136/67 mmHg Allergies - No known allergies. M-Mode/2D Measurements LV Diastolic Dimension: 5.41 cm LV Systolic Dimension: 3.44 cm LV Septum Diastolic: 1.54 cm LV Septum Systolic: 3.54 cm LV PW Diastolic: 1.45 cm AO Root Dimension: 2.9 cm Cardiac Output: 7.8 l/min AV Cusp Separation: 0.5 cm RV Diastolic Dimension: 2.8 cm LA Dimension: 4.4 cm Post Pericard Effusion: 1.1 cm LA volume: 87 ml IVC Inspiration: 1.31 cm LVOT: 2.1 cm RV Base: 4.14 cm LVOT VTI: 27.8 cm RV Mid: 3.29 cm LV Stroke volume: 96.24 ml RV Length: 5.67 cm TAPSE: 2.71 cm TDI-S': 17.2 cm/s Doppler Measurements AV Peak Velocity: 4.75 m/s MV Peak E-Wave: 1.37 m/s AV Peak Gradient: 90.25 mmHg MV Peak A-Wave: 1.78 m/s AV Mean Gradient: 38 mmHg MV E/A Ratio: 0.77 LVOT Peak Velocity: 1.07 m/s MV P1/2t: 77 msec TR Gradient:41.47 mmHg PV Peak Velocity: 1.43 m/s Estimated RAP:8 mmHg PV Peak Gradient: 8.18 mmHg Estimated RVSP: 49 mmHg Estimated PASP: 49.47 mmHg E' Septal Velocity: 0.05 m/s A' Septal Velocity: 0.13 m/s E' Lateral Velocity: 0.07 m/s A' Lateral Velocity: 0.05 m/s MV E/E' Ratio: 26 Findings Left Ventricle The estimated left ventricular ejection fraction is 55-60%. Mild concentric left ventricular hypertrophy. Diastolic assessment reveals Grade I diastolic dysfunction. Right Ventricle Normal right ventricle structure and function. Left Atrium The left atrium is mildly dilated. Right Atrium Normal right atrial size. Mitral Valve Mild mitral regurgitation by color Doppler. Moderate to severe mitral annular calcification. Aortic Valve There is severe aortic stenosis by the Continuity Equation. The peak velocity is4.75 m/s, the mean gradient is46 mmHg, and the valve area based on the continuity equation is cm2, stroke volume index is ml/m2. There is mild aortic regurgitation by color Doppler. Tricuspid Valve There is moderate pulmonary hypertension. The pulmonary pressure (RVSP) is 49. mmHg. Pulmonic Valve Trivial pulmonic valve regurgitation by color Doppler. Pericardial Effusion Trivial global pericardial effusion. Miscellaneous Visualized portions of the aortic root and ascending aorta appear normal in size. Pleural Effusion No evidence of pleural effusion. Contractility Score LV regional wall motion:(0-Non visualized 1-Normal 2-Hypokinesis 3-Akinesis 4-Dyskinesis 5-Aneurysm) Signature dtt: Michel Ramos (cardio) dtd: 11/24/16 1553 Physician Self Edit
--- NOTE | ~2016-11-19 | DS ---
PATIENT'S NAME: WILLIS AYALA [facility] AGE: 66 Y [address] ROOM: [address] [address] [place] [facility] [place]: [place]19/[place] Discharge Summary DISCHARGE DATE: 11/29/2016 FAMILY PHYSICIAN: Joana Sauer MD ATTENDING PHYSICIAN: Lulú Morton FINAL DIAGNOSES: 1. Persistent profuse diarrhea. 2. Acute kidney injury on stage 3 chronic kidney disease. 3. Insulin-dependent diabetes mellitus. 4. Severe aortic stenosis. 5. Essential hypertension. 6. Obstructive sleep apnea. PROCEDURES: He had an EGD with small bowel biopsies done by Dr. Bruno on November 20, 2016. For details of admission, please see the H and P. In short, the patient was readmitted after going home and having persistent diarrhea. On arrival, he was significantly dehydrated and he had acute kidney injury. LABORATORY DATA: On admission, sodium was 131, most prior to discharge was 140; potassium on admission was 3.8, it did dip low, was 2.8 on November 20, it did get back up into the normal range, and then it dropped to 2.9 on the , and on the day of transfer was 2.9; BUN on admission was 62, most prior to discharge was 26; creatinine on admission was 4.6, it did increase to 4.7, did gradually decline and most prior to discharge was 2. On admission, his alkaline phosphatase was 84, AST 14, ALT 25, magnesium 2.3. His magnesium on admission was 2.3; the lowest it got was 1.6 on the . His TSH on November 24 was 0.61. On admission, his white blood cell count was 11.8, it did go up, the most recent prior to discharge was 15.6; his hemoglobin on admission was 12, most prior discharge 10.5; platelet count on admission was 135, most prior to discharge 111. His vasoactive intestinal peptide returned at 71. His tTG-IgA was less than 1.7. His tTG-IgA/G was 2.7. On admission, stool was negative for C. diff. Blood culture was no growth. Urine culture was no growth. One blood culture drawn on the , grew bacillus species; it was felt to be a contaminant. Stool cultures were negative Salmonella, Shigella, Campylobacter, E. coli 0157:H7, Aeromonas. RADIOLOGY STUDIES: Gastric emptying study done on November 21 showed that he had slow gastric emptying time, half time of 116 minutes, consistent with gastroparesis. Abdominal ultrasound to look at his gallbladder did not show any evidence of cholecystitis. Chest x-ray on the done for fever and chills, there is question of a left basal pneumonia. Chest x-ray done on the showed that there has been quite a bit of improvement in his breathing. PATIENT'S NAME: WILLIS AYALA [facility] AGE: 66 Y [address] ROOM: [place] [address] [place] [facility] [place]: 11/19/2016 Discharge Summary DISCHARGE DATE: 11/29/2016 FAMILY PHYSICIAN: Joana Sauer MD [facility]: The patient was admitted with acute kidney injury. It was felt to be prerenal. He was given aggressive IV hydration. GI was asked to see him. Stool cultures were obtained and he was checked for C. diff. A tissue transglutaminase antibody was checked to evaluate for celiac sprue. He was put on sliding scale insulin. His kidney function and electrolytes were monitored very closely. GI did see him and did agree to do an EGD. EGD did not show any significant structural abnormalities. It was significant for the fact that he had retained gastric secretions. A biopsy was taken, which later came back negative for celiac sprue. Because of the retained gastric secretions, a decision was made to proceed with a gastric emptying study. He was given IV Protonix and he was given Zofran for nausea. He did have significant metabolic acidosis. He was initially treated with IV bolus and then IV fluids with bicarb. We then did switch him to oral bicarb when he was able to tolerate oral things. We did give him one dose of Phenergan during the time when he was nauseated and unfortunately that caused encephalopathy. A decision was made to evaluate for gallbladder disease, see if this is causing any difficulty. An ultrasound of the abdomen was ordered; in the mean time, he was given aggressive IV hydration. His electrolytes were monitored and potassium replaced. Adjustments were made in Levemir and NovoLog carb count to try and control his blood sugars. GI did stop the Protonix. He was started on Benefiber and Cholestaid. He really still did not have much improvement. We did start rifaximin as there was concern that he may have bacterial overgrowth. We did continue to monitor him. We did discuss using Entocort on him for possible microscopic colitis although we did not see on the biopsy. He did receive a dose of IV Solu-Medrol on the ; also at that time, he had low-grade fever. Chest x-ray was done. It did show some infiltrate. He was started on amoxicillin. We did continue to work with his blood sugars, in terms of adjusting his NovoLog to carbohydrate ratio as well as increasing the Levemir. He did have one episode of chest pain. He had laboratories checked including a troponin; it was elevated but it was felt it was elevated due to his kidney disease. He did receive 2 doses of the prednisone on Saturday, the . He was starting to show improvement in his bowels. On the , we did place him on Entocort. The patient was given Librax and amoxicillin. Lomotil was stopped. Then he did recurrently have significant explosive diarrhea on the . At that time, we did give an aggressive hydration. His oral intake decreased and we did have to make adjustments in his insulin doses. A decision was made that he would probably benefit from transfer [facility]. Care Management did work through the insurance to make sure that we had approval for that and the patient was transferred to [facility] for further gastroenterologic evaluation. MEDICATIONS: His medications at transfer were: 1. Colestid 2 g 3 times daily with meals. 2. Librax one tablet 3 times daily. PATIENT'S NAME: WILLIS AYALA [facility] AGE: 66 Y [address] ROOM: [address] [address] [place] [facility] [place]: 11/19/2016 Discharge Summary DISCHARGE DATE: 11/29/2016 FAMILY PHYSICIAN: Joana Sauer MD ATTENDING PHYSICIAN: Lulú Morton 3. Entocort 3 mg 3 times daily. 4. NovoLog 2 units per 15 g of carbohydrates 3 times daily with meals. 5. Levemir 10 twice daily. Both the Levemir and the NovoLog doses had just been decreased due to significant hypoglycemia. 6. Metamucil one packet twice daily. 7. Rifaximin 550 mg p.o. 3 times daily. 8. Zocor 20 mg daily. 9. Sodium bicarbonate 1300 mg 3 times daily. 10. 50 mg at bedtime. 11. Tylenol 1000 mg every 6 hours as needed. 12. Dextrose 25 mL IVP push for hypoglycemia. 13. Lomotil 1 tablet every 6 hours as needed. 14. Glucagon 1 mg subcutaneously for hypoglycemia. 15. Glucose 16 g p.o. for hypoglycemia. 16. Zofran 4 mg every 6 hours as needed for nausea. 17. CPAP. 18. Lopressor 12.5 mg twice daily if his systolic blood pressure is greater than 120. This was discussed at length with the patient and his . They did voice understanding and did consent to go to [facility]. GHULAM HWITTINGTON MD LAW/modl /[id number] d: 11/30/16 0943 t: 12/05/16 1934, DISCHARGE SUMMARY
--- NOTE | ~2016-11-19 | CON ---
PATIENT'S NAME: WILLIS AYALA [facility] AGE: 66 Y [address] ROOM: [place] [address] [place] [facility] [place]: 11/19/2016 Consultation DISCHARGE DATE: FAMILY PHYSICIAN: DANIELA DERAS MD ATTENDING PHYSICIAN: Lulú MORTON REFERRING PHYSICIAN: Isabel Bruno MD HISTORY OF PRESENT ILLNESS: This is a 66-year-old gentleman who normally sees Dr. Rosa in [place]. He was admitted for second time, last time being in end of October with chronic diarrhea. He has lost approximately 32 pounds in the last 6 weeks. His diarrhea is thought to be secondary to diabetic autonomic neuropathy. He presented to the GI office with repeat complaint of diarrhea and acute on chronic kidney disease. He had had an extensive workup including colonoscopy which was unremarkable, serotonin release assay that was unremarkable, and a vasoactive workup that was also unremarkable. Antibody tissue transglutaminase was unremarkable as well. He was treated with rifaximin without improvement of his symptoms. Cardiology was asked to see him for his aortic stenosis. He had an echocardiogram today, which showed severe aortic stenosis. He had had a heart cath a year ago, which showed moderate . Currently, he denies complaints of lightheadedness or dizziness. He states that his exercise tolerance has decreased significantly. He does not walk very far at all. He does complain of some shortness of breath. There has been no report of presyncope or syncopal episodes and he does not have any problems with exertional chest heaviness. PAST MEDICAL HISTORY: 1. Aortic stenosis, moderate to severe. 2. Essential hypertension. 3. Diabetes mellitus. 4. Obstructive sleep apnea, on CPAP. 5. Hyperlipidemia. 6. Chronic sinusitis and headaches. 7. Chronic kidney disease. 8. Hyperlipidemia. 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 ALLERGIES: NONE TO MEDICATION. CURRENT MEDICATIONS: 1. Amoxicillin 500 mg, 1500 mg b.i.d. p.o. PATIENT'S NAME: WILLIS AYALA [facility] AGE: 66 Y [address] ROOM: [place] [id number] [place] [facility] [place] [facility] [place]: 11/19/2016 Consultation DISCHARGE DATE: FAMILY PHYSICIAN: DANIELA DERAS MD ATTENDING PHYSICIAN: Lulú MORTON 2. Colestid 1 g tablet, to take 2 g t.i.d. 3. Deltasone 10 mg b.i.d. 4. Desyrel 50 mg every h.s. 5. Lomotil 1 tablet p.o. t.i.d. 6. Metamucil 1 packet b.i.d. 7. Sodium bicarbonate 1300 mg b.i.d. 8. Vitamin B12, 500 mcg tablet, he takes 1000 every day. 9. Xifaxan 550 mg tablet t.i.d. 10. Zocor 20 mg daily. 11. Heparin 5000 units subcu t.i.d. 12. Levemir 30 units at h.s., 3 units per sliding scale. SOCIAL HISTORY: He denies alcohol or cigarette use. FAMILY HISTORY: Father had diabetes type 1, from heart failure complications in his 60s. Mother from old age. REVIEW OF SYSTEMS: GENERAL: He is feeling fairly weak. He has had significant weight loss. HEAD: He has problems with chronic sinusitis and headaches. EYES: He wears corrective lenses. EARS: No problems with hearing. NOSE: No epistaxis. MOUTH: No gingival bleeding. THROAT: Denies sore throat, hoarseness, or difficulty swallowing. PULMONARY: No complaint of orthopnea. GI: He is having problems with chronic diarrhea. No melena or hematochezia. : Negative for urinary frequency. He does have problems with chronic kidney disease. MUSCULOSKELETAL: He has osteoarthritis, especially in the knees. PSYCHIATRIC: No mood changes. PHYSICAL EXAMINATION: VITAL SIGNS: His blood pressure is 122/78 to 140/82, heart rate 64 to 74, temperature is 98.6, and he is 5 feet 8 inches. SKIN: Warm, dry, and pink. HEENT: Pupils equal, round, and react briskly. NECK: Soft and supple. He does have delayed upstrokes with bruits. CV: Irregular with normal S1 and S2 with systolic ejection murmur, grade 2/6 with preserved second heart sound consistent with moderate to severe . ABDOMEN: Soft. Bowel sounds are present. EXTREMITIES: Show no peripheral edema, no clubbing, and no cyanosis. PATIENT'S NAME: WILLIS AYALA [facility] AGE: 66 Y [address] ROOM: [place] [address] [place] [facility] [place]: 11/19/2016 Consultation DISCHARGE DATE: FAMILY PHYSICIAN: DANIELA DERAS MD ATTENDING PHYSICIAN: Lulú MORTON LABORATORIES: Today, BUN is 30, creatinine 2.4, sodium 139, potassium 3.2, and glucose was 202. Hemoglobin 10.7, hematocrit 29.3, and white count 13.4. ASSESSMENT: 1. Aortic stenosis. Per Dr. Wheeler, would recommend TAVR evaluation once his diarrhea has improved. Would avoid hypotensive episodes. 2. Hypokalemia. Recommend replacing his potassium today. I will recheck his labs in the morning. 3. Chronic diarrhea per hospitalist and I. 4. Diabetes mellitus. He will continue with his current medications. The assessment and plan, history of present illness, and physical exam are per Dr. Wheeler. We would like to thank Dr. Morton for allowing us to participate in the patient's care. NACHO CEVALLOS APRN FOR JOSIE WHEELER MD TGP/modl /[id number] d: 11/25/161809 t: 12/11/16 1002, CONSULTATION REPORT
[~2016-11-19 16:30] MED LIST changes: +FLAGYL500 M1 PO; +IMODIUM2 MG PO; +LOMOTIL1 TAB PO; +MELATONIN5 M2 PO; +TYLENOL EXTRA500 MG PO; +VITAMIN B-121000 MCG PO; +XIFAXAN550 MG PO
[2016-11-19] MEDS ORDERED: PROBIOTIC1 EAC1 PO (19:11)
[2016-11-19] MEDS ORDERED: CLONIDINE HCL0.1 MG PO (19:12)
[2016-11-19] MEDS ORDERED: METAMUCIL PACKE1 PKT PO (19:13)
[2016-11-19] MEDS ORDERED: COLESTID1 G1 PO (19:15)
--- NOTE | 2016-11-19 20:43 | NUR ---
66 Y/O MALE ADMITTED FOR DIARRHEA, CHRONIC KIDNEY DISEASE, AND ACUTE KIDNEY INJURY. PT IS A&OX3, STATES THAT HE HAS HAD THIS DIARRHEA FOR THE PAST 6 WEEKS, PT WAS IN [facility] ON 11/01/16, DISCHARGED SEVERAL DAYS LATER & [facility] FOR THE SAME PROBLEMS. PT STATES THAT HE HAS LOST @ 32 LBS IN THE PAST 6 WEEKS. [facility] MEDICAL HISTORY - DMI-DIAGNOSED AT AGE 18 Y/O, CHRONIC RENAL DISEASE, HEART VALVE DISEASE, HTN, HIGH CHOL, CAD, MURMUR, BILAT LOWER LEG EDEMA, BILAT NEUROPATHY. NOCTURIA. DIZZINESS & BALANCE ISSUES FOR THE PAST 2 YEARS BUT DENIES EVER FALLING. SLEEP APNEA & HOME C PAP, UMBELICAL HERNIA. NON SMOKER & NON DRINKER. SURGICAL HISTORY OF RT KNEE 1969, RT MIDDLE FINGER AMPUTATED DUE TO A DEFECT, BILAT CATARACT W/ IOLI, HEART CATH X2-3 NO STENTS. REPORT GIVEN TO [facility] PRIMARY CARE NURSE MAYDA AMES ADM EDUC NOT DONE PT & HIS ARE ALREADY KNOWLEDGED
[2016-11-19 21:12] LABS: ALBUMIN 3.1 gm/dL (3.5-5.0); CALCIUM 7.5 mg/dL (8.5-10.5); MAGNESIUM 2.3 mg/dL (1.8-2.6); POTASSIUM 3.8 mMol/L (3.7-5.1); TOTAL PROTEIN 6.8 g/dL (6.0-8.4)
[2016-11-19 21:20] LABS: ANION GAP 15.8 (10.0-19.0); CREATININE 4.6 mg/dL (0.6-1.3); TOTAL BILIRUBIN 0.3 mg/dL (0.0-1.5)
--- NOTE | 2016-11-20 03:02 | NUR ---
Significant Event: Pt alert and Oriented x3. Cooperative with cares. 1 assist. at bedside. multiple stools through out the night. echevarria placed for I/O. ADA diet has been NPO since midnight. GI consulted. pt states he is feeling better. Sodium bicarb started. refused heprin shot and levamir. levamir then D/C. ACHS accuchecks. hpotensive other VS within normal limits. Lomotil given x1 per pt request other rodrigez refused. c-diff negative. Follow up:monitor BS
[2016-11-20 04:50] LABS: ALBUMIN 2.8 gm/dL (3.5-5.0); CALCIUM 7.6 mg/dL (8.5-10.5); MAGNESIUM 2.2 mg/dL (1.8-2.6); POTASSIUM 3.1 mMol/L (3.7-5.1); TOTAL BILIRUBIN 0.3 mg/dL (0.0-1.5); TOTAL PROTEIN 6.1 g/dL (6.0-8.4)
[2016-11-20 04:53] LABS: ANION GAP 14.1 (10.0-19.0); CREATININE 4.7 mg/dL (0.6-1.3)
--- NOTE | 2016-11-20 10:38 | NUR ---
Diabetes note 0945 Visited with patient and spouse, patient states he has had type 1 diabetes for 47 years and states he feels like he to doing well. Takes insulin injections at home and current A1C was 6.8 %. Spouse and patient agrees to complete the Diabetes Assessment from and CDE will assess educational needs later today. Denies needing any assistance at this time.
[2016-11-20 17:16] LABS: CALCIUM 7.2 mg/dL (8.5-10.5); CREATININE 4.1 mg/dL (0.6-1.3)
--- NOTE | 2016-11-20 20:09 | NUR ---
AAOx3. Cooperative with cares. Lethargic. Had EGD today w/biopsies taken. PIVs to LFA, LAC, RAC, HITESH. Bicarb changed from IV to PO. IVF to LFA@125. Emesis x2 today. Gave Zofran and Phenergan IMx1. Tolerating small amounts of liquids and applesauce. at BS. NPO after MN for gastric emptying study. Frequent incontinent or urgent liquid BMs to BSC. BS AC/HS w/moderate SSI. CPAP @noc.
[2016-11-20 22:49] LABS: CREATININE 3.9 mg/dL (0.6-1.3)
[2016-11-20 22:50] LABS: ANION GAP 13.8 (10.0-19.0); CALCIUM 7.2 mg/dL (8.5-10.5); POTASSIUM 2.8 mMol/L (3.7-5.1)
--- NOTE | 2016-11-21 03:32 | NUR ---
Significant Event: Pt alert and oriented at begginging of shift, but drowsy. . 25 MG of Phenegran given at shift change for complaints of neausea by prior shift. pt slept for most of first part of shift, on second assesment pt became disoriented, but would follow comands. notified and up to see pt, pt was then alert and oriented. pt goes in and out of orientation. Samuels intact with 1050 out. denies any pain or neausea for me. multiple small loose stools. VSS.RA. no emesis this shift. NPO since midnight for gastrict empting study. bicarb tabs started. IV pottassium given. ACHS SS changed to moderate. lomotil given x1 with little relief. denies any pain or SOB. CPAP at HS. Follow up:
[2016-11-21 05:25] LABS: BASOPHIL % 0.2 %; EOSINOPHIL # 0.1 K/uL (0.0-0.5); EOSINOPHIL % 0.8 %; HEMATOCRIT 32.8 % (37.0-53.0); IMMATURE GRANULOCYTE # 0.1 K/uL (0.0-0.3); IMMATURE GRANULOCYTE % 0.8 %; LYMPHOCYTE # 0.8 K/uL (0.8-4.0); LYMPHOCYTE % 6.5 %; MCH 30.8 pg (27.0-34.0); MCHC 36.6 gm/dL (32.0-36.5); MCV 84.3 fl (83.0-98.0); MONOCYTE # 0.6 K/uL (0.0-1.0); MPV 9.8 fl (9.4-12.4); NEUTROPHIL # (ANC) 10.2 K/uL (1.4-9.0); NEUTROPHIL % 86.7 %; NRBC % 0 /100WBC (0-0.00); PLATELET COUNT 135 K/uL (150-450); RBC 3.89 M/uL (3.50-5.50); RDW-CV 12.9 % (11.9-14.6); WBC 11.8 K/uL (4.0-11.0)
[2016-11-21 05:38] LABS: ALBUMIN 2.8 gm/dL (3.5-5.0); CREATININE 3.6 mg/dL (0.6-1.3); MAGNESIUM 2.1 mg/dL (1.8-2.6); PHOSPHORUS 4.1 mg/dL (2.5-4.9); POTASSIUM 3.4 mMol/L (3.7-5.1)
[2016-11-21 05:40] LABS: ANION GAP 17.4 (10.0-19.0); CALCIUM 7.4 mg/dL (8.5-10.5)
--- NOTE | 2016-11-21 15:42 | NUR ---
Patient is alert and oriented, VSS, on room air, CPAP at night. 1 assist to the commode. Has been NPO all day for a gastric emptying study. ACHS accucheck. Multiple loose stools with incontinence. His is at bedside and does most of his cares for him. He likes to administer insulin to himself.
--- NOTE | 2016-11-21 17:30 | NUR ---
SPOKE TO PATIENT'S SPOUSE AT THE BEDSIDE. PATIENT IS SLEEPING AT THIS TIME. INTRODUCED CM AND OUR ROLE. PATIENT LIVES IN OWN HOME WITH SPOUSE, SHE REPORTS THAT HE I A LEARNING SUPPORT AIDE AND FARMS. SHE IS HOPING THAT HE CAN RETURN HOME WITH HER ONCE HE IS READY FOR DISCHARGE. SHE FEELS THAT HE IS MUCH WEAKER THAN HE HAS BEEN AND VOICES CONCERNS ABOUT BEING ABLE TO MANAGE HIM AT HOME. SHE TELLS ME THAT " HE IS NOT LEAVING HERE UNTIL HE CAN WALK" I EXPLAINED TO HER THAT ONCE HE IS MEDCIALLY STABLE THAT WE MAY NEED TO LOOK INTO GETTING HIM TO A SNF FOR THERAPY UNTIL HE IS STRONG ENOUGH TO GO HOME. HIS SPOUSE TELLS ME THAT IF HE NEEDS TO THAN SHE WANTS HIM TO GO TO [facility] IN [place] SHE IS A NURSE THERE. ALSO PRESENTED OPTION OF HHC BUT SHE TELLS ME THAT [place] AND [place] IS NOT A HHC AGENCE[facility] THAT WILL COME THERE. WILL CONT TO FOLLOW NEEDED.
[2016-11-21 19:10] LABS: ALBUMIN 2.8 gm/dL (3.5-5.0); CALCIUM 7.6 mg/dL (8.5-10.5); CREATININE 3.6 mg/dL (0.6-1.3); MAGNESIUM 2.1 mg/dL (1.8-2.6); PHOSPHORUS 2.8 mg/dL (2.5-4.9); POTASSIUM 4.1 mMol/L (3.7-5.1)
[2016-11-21 19:12] LABS: ANION GAP 15.1 (10.0-19.0)
--- NOTE | 2016-11-22 02:23 | NUR ---
Significant Event: Pt alert and oriented, confused at times and drowsy. Cooperative with cares.New IV in left AC, IV fluids change to NS at 75 ML/HR. pt still having multiple loose stools a shift. ate bites and sips for dinner. echevarria intact draining clear yellow urine. ACHS acuuchecks and carb count. VSS. RA. at bedside assist with cares. buttock excoriated sensicare and aloe vesta applied frequently. SBA. Follow up:
[2016-11-22 06:11] LABS: HEMATOCRIT 30.6 % (37.0-53.0); HEMOGLOBIN 11.1 g/dL (11.0-16.0)
[2016-11-22 06:21] LABS: CALCIUM 7.5 mg/dL (8.5-10.5); CREATININE 3.4 mg/dL (0.6-1.3); POTASSIUM 3.5 mMol/L (3.7-5.1)
[2016-11-22 06:25] LABS: ANION GAP 15.5 (10.0-19.0)
[2016-11-22 17:06] LABS: ALBUMIN 2.5 gm/dL (3.5-5.0); CALCIUM 7.5 mg/dL (8.5-10.5); CREATININE 3.1 mg/dL (0.6-1.3); MAGNESIUM 1.9 mg/dL (1.8-2.6); POTASSIUM 3.1 mMol/L (3.7-5.1)
[2016-11-22 17:08] LABS: ANION GAP 11.1 (10.0-19.0); PHOSPHORUS 1.7 mg/dL (2.5-4.9)
--- NOTE | 2016-11-22 17:10 | NUR ---
A-NUTRITION F/U GASTRIC EMPTYING STUDY COMPLETED PER PT, N/V HAS IMPROVED SINCE LAST F/U. HE HAS NOT TRIED THE ENSURE CLEAR YET, BUT WILL STATES HE WILL MAKE A POINT OF IT WHEN HE GETS HIS DINNER TRAY. LABS: NA 141, K+ 3.5, GLU 271, BUN 58, CHLORINE CELLS OPERATOR 3.4, ALB 2.8 MEDS: LOMITIL, METAMUCIL, SODIUM BICARB, LEVEMIR, NOVOLOG DIET RX: CONSISTENT CARB W/APPLE ENSURE CLEAR TID. PO INTAKE HAS BEEN SIPS AND BITES IN BETWEEN BEING NPO. EST NUTR NEEDS: [id number] KCALS AND 79-99 GM PROTEIN D-AT NUTRITION RISK W/INADEQUATE ORAL INTAKE R/T ALTERED GI FXN AEB N/V, INTAKE RECORDS, PT REPORT. I-CONTINUE W/ENSURE CLEAR TID M/E-GOAL: PO INTAKE >/=50% BY NEXT F/U 1)F/U PO INTAKE, SUPPLEMENT, GI, AND POC IN 4-5 DAYS 2)ASSIST NEEDED
--- NOTE | 2016-11-22 17:22 | NUR ---
Patient is still drowsy but more alert, oriented to person, place and situation. ACHS accuchecks with moderate sliding scale, coverage given with each BS. Levemir 8 units given around 1700. Has had 6 stools this shift, starting to become more liquid. Samuels with 2100ml out of clear, yellow urine. IV to L) AC will be saline locked after albumin infusion, waiting for pharmacy to bring. New antibiotic will be started when it arrives from pharmacy. Started on metamucil and lamotil is now scheduled. PT/OT consult. Will be NPO at midnight for a RUQ ultrasound. Carb count was increased to 2 units per 15 grams of carbs.
[2016-11-22 23:18] LABS: ALBUMIN 2.8 gm/dL (3.5-5.0); ANION GAP 15.5 (10.0-19.0); CALCIUM 7.5 mg/dL (8.5-10.5); CREATININE 2.9 mg/dL (0.6-1.3); POTASSIUM 3.5 mMol/L (3.7-5.1)
[2016-11-23 04:18] LABS: BASOPHIL % 0.4 %; EOSINOPHIL # 0.2 K/uL (0.0-0.5); EOSINOPHIL % 1.8 %; HEMATOCRIT 29.5 % (37.0-53.0); HEMOGLOBIN 10.8 g/dL (11.0-16.0); IMMATURE GRANULOCYTE # 0.1 K/uL (0.0-0.3); IMMATURE GRANULOCYTE % 0.6 %; LYMPHOCYTE # 0.9 K/uL (0.8-4.0); LYMPHOCYTE % 8.4 %; MCH 30.9 pg (27.0-34.0); MCHC 36.6 gm/dL (32.0-36.5); MCV 84.5 fl (83.0-98.0); MONOCYTE # 0.9 K/uL (0.0-1.0); MONOCYTE % 8.5 %; MPV 10.2 fl (9.4-12.4); NEUTROPHIL # (ANC) 8.5 K/uL (1.4-9.0); NEUTROPHIL % 80.3 %; NRBC % 0 /100WBC (0-0.00); PLATELET COUNT 129 K/uL (150-450); RBC 3.49 M/uL (3.50-5.50); RDW-CV 13.3 % (11.9-14.6); WBC 10.6 K/uL (4.0-11.0)
--- NOTE | 2016-11-23 04:18 | NUR ---
Significant Event: Patient alert and oriented X4. at bedside. Not confused this shift. Denies pain/nausea. Very tired. Sleeps most of time. Vitals stable and wears CPAP at night. at bedside that helps with cares. Several loose stools. On lomitil and metamucil. Recieved another of 40Meq IV K+ around 0115. K+ was only 3.5 after oral and IV K+ during days. NPO at 0000 for ultrasound of abdomen today. Bilateral arm IVs. Samuels in place. ACHS accuchecks + carb count. Monitor stools Follow up:
[2016-11-23 04:26] LABS: CALCIUM 7.7 mg/dL (8.5-10.5); CREATININE 2.8 mg/dL (0.6-1.3); POTASSIUM 3.2 mMol/L (3.7-5.1)
[2016-11-23 04:30] LABS: ANION GAP 12.2 (10.0-19.0)
--- NOTE | 2016-11-23 18:52 | NUR ---
Patient is alert and oriented, VSS, on room air, wears CPAP at night. Midline placed in the L) upper arm, potassium chloride infusing. L) AC and R) hand saline locked. Has had 7 bowel movements on my shift. ACHS accucheck, moderate SSI with carb count. Stand by to 1 person assist.
[2016-11-23 19:59] LABS: ALBUMIN 2.8 gm/dL (3.5-5.0); CALCIUM 7.8 mg/dL (8.5-10.5); CREATININE 2.6 mg/dL (0.6-1.3); POTASSIUM 3.4 mMol/L (3.7-5.1)
[2016-11-23 20:01] LABS: ANION GAP 11.4 (10.0-19.0)
[2016-11-23 20:02] LABS: PHOSPHORUS 1.2 mg/dL (2.5-4.9)
--- NOTE | 2016-11-24 04:47 | NUR ---
Significant Event: AAOX3. ADA, ACHS MILD SS. PIV LFA SL. MIDLINE TO LUE PATENT. 40 MEQS KCL ADMINISTERED VIA IV. PT HAD 8 GELATENOUS BM'S THROUGOUT SHIFT WITH ONE UP FOR DAYS CREDIT. NO PRN'S ADMINISTERED. PT IS TRYING A BRAT DIET IN AN ATTEMPT TO ALLEVIATE SYMPTOMS. AT BEDSIDE THROUGH OUT SHIFT. PT WAS ALERT AND ABLE TO MAKE NEEDS KNOWN. DENIED PAIN/SOB THROUGHOUT SHIFT. Follow up:
[2016-11-24 05:51] LABS: ANION GAP 10.5 (10.0-19.0); CREATININE 2.6 mg/dL (0.6-1.3); POTASSIUM 3.5 mMol/L (3.7-5.1)
[2016-11-24 13:45] LABS: HEMATOCRIT 29.3 % (37.0-53.0); HEMOGLOBIN 10.7 g/dL (11.0-16.0); MCH 31.1 pg (27.0-34.0); MCHC 36.5 gm/dL (32.0-36.5); MCV 85.2 fl (83.0-98.0); MPV 9.5 fl (9.4-12.4); PLATELET COUNT 117 K/uL (150-450); RBC 3.44 M/uL (3.50-5.50); RDW-CV 13.7 % (11.9-14.6); WBC 13.4 K/uL (4.0-11.0)
[2016-11-24 14:08] LABS: ALBUMIN 2.7 gm/dL (3.5-5.0); CALCIUM 7.7 mg/dL (8.5-10.5); CREATININE 2.4 mg/dL (0.6-1.3); POTASSIUM 3.2 mMol/L (3.7-5.1)
[2016-11-24 14:13] LABS: ANION GAP 14.2 (10.0-19.0); BANDED NEUTROPHIL # 1.5 K/uL (0.0-0.1); BANDED NEUTROPHILS % 11 %; LYMPHOCYTE # 0.3 K/uL (0.8-4.0); LYMPHOCYTE % 2 %; MONOCYTE # 0.1 K/uL (0.0-1.0); SEGMENTED NEUTROPHIL # 11.5 K/uL (1.4-9.0); SEGMENTED NEUTROPHIL % 86 %; TOTAL BILIRUBIN 0.5 mg/dL (0.0-1.5)
[2016-11-24 15:15] LABS: BILIRUBIN URINE NEGATIVE (NEGATIVE); BLOOD URINE 25 /UL (NEGATIVE); COLOR URINE YELLOW (YELLOW); GLUCOSE URINE NEGATIVE (NEGATIVE); KETONE URINE 5 mg/dL (NEGATIVE); LEUKOCYTES URINE NEGATIVE /UL (NEGATIVE); NITRITE URINE NEGATIVE (NEGATIVE); PROTEIN URINE 100 mg/dL (NEGATIVE); TURBIDITY URINE CLEAR (CLEAR); UROBILINOGEN URINE NORMAL (NORMAL)
[2016-11-24 15:25] LABS: WBC URINE 0-2 #/HPF (NEGATIVE)
[2016-11-24 15:26] LABS: RBC URINE 0-2 #/HPF (NEGATIVE)
[2016-11-24 15:27] LABS: EPITHELIAL URINE RARE #/HPF (NEGATIVE)
[2016-11-24 15:28] LABS: BACTERIA URINE NEGATIVE (NEGATIVE)
--- NOTE | 2016-11-24 19:30 | NUR ---
Significant Event: Patient is alert and oriented x3. VSS and on RA. Had 11 BM's today. Voiding adequately. UA collected. Chest x-ray done, echo completed. Stool needs sent down for culture. L)FA IV and midline IV. Good blood return to the midline. Accuchecks AC/HS. Has only been able to eat a half of banana today. Exocriated bottom is looking better. Patient and are just frustrated because they dont have answers. Cooperative with cares. Spiked a temp today, had the shakes for awhile late this morning, patient just states he does not feel good at all.
--- NOTE | 2016-11-25 05:34 | NUR ---
Significant Event: AAOX3. REG DIET, ONLY CONSUMED 1/2 HAM SANDWICH IN THE LATE EVENING. HAD 5 LOOSE/WATERY BM'S VARYING IN CONSISTENCY/COLOR. WATER INTAKE SUFFICIENT. AT BEDSIDE. REFUSED METAMUCIL. Follow up:
--- NOTE | 2016-11-25 15:53 | NUR ---
Significant Event: Patient is alert and oriented x3. VSS and on RA. Patient states he is feeling better today. He has ambulated in the halls 3 times. Has had 8 bms today, one of those was semi-formed and a good stool. Has tolerated some food- had a full grilled ham sandwich for lunch and a half of a banana. Potassium 40meq given per protocol, K check at 1715. Will see at that time. L)FA and L)upper midline, SL. Accuchecks AC/HS- have been high. Carb counts. Voiding okay. Tele on during potassium infusion- had ST depression. MD notified and ordered EKG and cardiac enzymes. Troponin came back abnormal. MD notified. No furthur orders at this time. Dr. Ramos saw today and Dr. Babb will see tomorrow. Family at the bedside. Started on amoxicillan. Perdisone 10mg for 2 doses and then will swith to enterocort. Refuses heparin. Cooperative with cares. Buttocks is redenned as well as scrotum, cream applied.
--- NOTE | 2016-11-26 04:38 | NUR ---
Significant Event: Pt alert and oriented. VSS. No c/o nausea or pain. COnt to have diarrhea with 6 loose stools and 1 formed bm at the beginning of shift. Refused supper last night, therfore refused hs insulin. Also refuses heparin. Is wearing esperanza p[employer]ematics. Uses call light for assistance. Dr. Babb to see today. Follow up:
[2016-11-26 05:26] LABS: HEMATOCRIT 28.8 % (37.0-53.0); HEMOGLOBIN 10.5 g/dL (11.0-16.0); MCH 31.2 pg (27.0-34.0); MCHC 36.5 gm/dL (32.0-36.5); MCV 85.5 fl (83.0-98.0); MPV 10.3 fl (9.4-12.4); PLATELET COUNT 111 K/uL (150-450); RBC 3.37 M/uL (3.50-5.50); RDW-CV 13.9 % (11.9-14.6); WBC 15.6 K/uL (4.0-11.0)
[2016-11-26 05:41] LABS: ALBUMIN 2.6 gm/dL (3.5-5.0); CALCIUM 7.6 mg/dL (8.5-10.5); CREATININE 2.7 mg/dL (0.6-1.3); PHOSPHORUS 2.6 mg/dL (2.5-4.9); POTASSIUM 3.4 mMol/L (3.7-5.1)
[2016-11-26 05:51] LABS: ANION GAP 16.4 (10.0-19.0)
[2016-11-26 06:20] LABS: ABSOLUTE NEUTROPHIL CT (ANC) 14.5 K/uL (1.4-9.0); BANDED NEUTROPHIL # 0.6 K/uL (0.0-0.1); BANDED NEUTROPHILS % 4 %; LYMPHOCYTE # 1.1 K/uL (0.8-4.0); LYMPHOCYTE % 7 %; SEGMENTED NEUTROPHIL # 13.9 K/uL (1.4-9.0); SEGMENTED NEUTROPHIL % 89 %
--- NOTE | 2016-11-26 15:44 | NUR ---
A-NUTRITION F/U LABS: NA 136, K+ 3.4, GLU 325, BUN 44, METAL PUNCH PRESS OPERATOR 2.7, ALB 2.6 MEDS: AMOXICILLAN DIET RX: CONSISTENT CARB W/ENSURE CLEAR. PO INTAKE SINCE LAST F/U HAS BEEN REF-100%; AVG IS 47%. PO INTAKE TODAY HAS BEEN 75-100% SO FAR. EST NUTR NEEDS: 4130-0307 KCALS AND 79-99 GM PROTEIN D-AT NUTRITION RISK W/INADEQUATE ORAL INTAKE R/T ATLERED APPETITE SECONDARY TO ALTERED GI FXN AEB N/V, LOOSE STOOLS, DX. I-1)D/C ENSURE CLEAR TID 2)START GLUCERNA BID M/E-GOAL: PO INTAKE >/=50% BY NEXT F/U 1)F/U PO INTAKE, SUPPLEMENT ACCEPTANCE/TOLERANCE, GI, AND POC IN 3-5 DAYS 2)ASSIST NEEDED
--- NOTE | 2016-11-26 16:46 | NUR ---
Significant Event: Patient is alert and oriented x3. VSS and on RA. Accuchecks AC/HS- sugars have been high. Starting on Levemir tonight. In the morning we are to call Dr. Johnson with the results of 0700 results. They will do another chest x-ray for followup from this weekend. Has been up with SBA to ind. Has had 8 stools today ranging from liquid to some semi-formed. Received 2gms of IV mag sulfate today and 40meq of potassium. Left AC IV as well as L)midline. Tele on. Family at the bedside. Buttocks is excoriated. Sore on scrotum. Aloe and sensi-care applied. Denies pain or nausea. Able to eat both breakfast and lunch today. Cooperative with cares. Seems to be in better spirits today.
--- NOTE | 2016-11-27 03:56 | NUR ---
Significant Event: Pt alert and Oriented x3. Cooperative with cares. pt up with SBA assist to bathroom. is more stable on feet. IV in left AC and Midline in left upper arm. ACHS accuchecks and Carb count with meals. tele on no calls. denies any pain or neausea. VSS. RA. 6 stools this shift.aloe vesta applied with each BM. bottom reddened. at bed side Follow up:we need to call [address] Johnson
[2016-11-27 05:15] LABS: CALCIUM 7.9 mg/dL (8.5-10.5); CREATININE 2.7 mg/dL (0.6-1.3); MAGNESIUM 2.1 mg/dL (1.8-2.6)
[2016-11-27 05:16] LABS: ANION GAP 12.9 (10.0-19.0); POTASSIUM 2.9 mMol/L (3.7-5.1)
--- NOTE | 2016-11-27 18:30 | NUR ---
Significant Event: Patient up with standby assist in room. able to help patient to and from the bathroom. Denies pain. Had a total of 5 small BM's. Patient did save one of his BM'S for nurse to look at and it was actually a soft blob. Not formed but better than what he was doing. Still has midline to left upper arm and left antecubital peripheral IV. On flushing lines this a.m., midline did not have blood return but flushed easily, and antecubital IV had good blood return so antecubital IV was used for potassium infusion and patient did tolerate well. Patient has had all of his meals late today. Accucheck for 1700 and 17-1800 meds not given yet as patient was sleeping. said she would call when patient woke up and had ordered supper. Patient also to have 2 more oral doses of potassium, but it needs to be given with food and as patient was sleeping was waiting for supper to give the potassium. Follow up: Continue to monitor.
--- NOTE | 2016-11-28 02:43 | NUR ---
Significant Event: Pt alert and oriented x3. Cooperative with cares. SBA/independent he will call when he needs help. at bedside and helps. IV left AC and L upper arm midline, both SL. denies any pain had total of 4 soft/loose stools so far this shift. VSS. RA. CPAP at HS. DW. I/O. ACHS accuchecks and carb count. bottom reddened and sore applied aloe vesta with each BM. pt walked in poole before bed. no neausea so far this shift. Follow up:
[2016-11-28 04:17] LABS: ANION GAP 12.4 (10.0-19.0); CALCIUM 7.7 mg/dL (8.5-10.5); CREATININE 2.3 mg/dL (0.6-1.3); POTASSIUM 3.4 mMol/L (3.7-5.1)
--- NOTE | 2016-11-28 16:29 | NUR ---
Significant event: Patient is alert and oriented x3. VSS. on room air. IV to left AC and midline to Left upper arm, both saline locked. NO blood return in either IV. 3 stools today all liquidy. [place] reddened, apply moisture barrier. Did have shower today. Refused PT, due to not feeling well. Is ACHS on aggressive scale and carb count. Is on strict I&O. Refuses Heparin. Is on Tele no calls. at bedside and does help, but make sure to offer assistance and encourage them to call when needed. Cooperative with cares.
--- NOTE | 2016-11-29 04:45 | NUR ---
Significant Event: PATIENT IS ALERT AND ORIENTED X3. AMBULATE WITH STAND BY ASSIST. IS A NURSE AND IN ROOM WITH PATIENT. VSS WNL ON RA. DIARRHEA X6 THIS SHIFT. IV SL. R WRIST IS NEW IS HAS GOOD BLOOD RETURN BEEN USING FOR POTASSIUM IV. L AC FLUSHES WELL NO BLOOD RETURN. MIDLINE FLUSHES WITH NO BLOOD RETURN. ON TELE NO CALLS. CPAP AT HS. ACHS WITH CARB COUNT 3UNITS PER 15 GRAMS. BLOOD SUGARS WERE LOW THIS SHIFT 74,72,150,72,80,WITH THE FINAL ONE AT 278. PATIENT HAD PEANUT BUTTER CRACKERS, PEPSI AND ORANGE JUICE WITH NO RESULTS. DR. ESPINOSA NOTIFED MULTIPLE TIMES OF LEVELS. 1 AMP OF 50% DEXTROSE WAS ORDERED 2 SEPARATE TIMES SEE EMAR FOR DETAILS. PLAN IS FOR PATIENT TO TRANSFER TO THE [facility] IN [place] IN AM. PLEASANT AND COOPERATIVE WITH CARES. Follow up:
[2016-11-29 06:56] LABS: ANION GAP 10.9 (10.0-19.0); CALCIUM 7.7 mg/dL (8.5-10.5)
[2016-11-29 06:58] LABS: POTASSIUM 2.9 mMol/L (3.7-5.1)
--- NOTE | 2016-11-29 09:26 | NUR ---
RECEIVED REFERRAL THAT PATIENT IS BEING TRANSFERED TO [facility] TODAY. I SPOKE TO EFREN AMES SHE TELLS ME THAT PATIENT HAS BEEN ACCEPTED TO [facility] THE ACCEPTING PHYSICIAN IS DR. RUIZ AND THAT THE BED CORDNATOR AT [facility] WILL CALL HER ONCE THEY HAVE A BED. AND THAT PATIENT WILL NEED TO GO VIA AMBULANCE. I SPOKE TO GM WITH [facility] AND INFORMED HER TO THE NEED FOR AMBULANCE TO TRANSPROT PATIENT TO [facility] SOMETIME TODAY.
--- NOTE | 2016-11-29 12:02 | NUR ---
Call received from Cordelia Cole from [facility]. Pt will be transferring to bed 6437, 6th floor in [facility]. Dr Felix accepting. Call report to [phone].
--- NOTE | 2016-11-29 12:03 | NUR ---
Transfer note: Patient will be transferring to [facility]. See pt note for details. Pt was admitted on 11/19/16 for second time, last time being the end of October for chronic diarrhea. He has lost greater than 30lbs in last 2 months. Has had colonoscopy, serotonin release assay, vasoactive workup, antibody tissue transglutaminase, with all being unremarkable. He had an echo which showed severe arotic stenosis. Has hx of previous heart cath-1 yr ago. Other hx includes, HTN, Diabetes, Sleep Apnea (uses CPAP), hyperlipidemia, chronic kidney disease.Currently is having hypokalemia and receiving replacement, per IV and orally. Continues to have extremely urgent and sometimes explosive diarrhea, several times a day. Pt has loss of appetite and is not eating well. Blood sugars have been harder to control. Has been on sliding scale and carb count. Gets Levemir BID also. Pt is weak and does not have enough energy to ambulate long distances. Is able to ambulate to bathroom when able to get there in time. Occasionally will have to use bedside commode. Pt has been on telemetry and today had a run of PVC, some with bigeminy. Has midline to left upper arm, peripheral to left forearm and right wrist. Pt is alert and oriented and able to make needs known. 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
--- NOTE | 2016-11-29 12:30 | NUR ---
RECEIVED CALL FROM EFREN AMES ON [facility] AND SHE REPORTS THAT SHE HAS RECEIVED CALL FROM [facility] THAT THEY NOW HAVE A BED FOR WILLIS AND THAT IT IS OK TO SEND HIM. I NOTIFIED [facility] AND SPOKE TO GM SHE WILL ARRANGE FOR AMBUALNCE TO GET PATIENT.
== END 2016-11-29 13:00 | disposition critical access hospital (66) | DRG 391 ==
LOC: GMSU 17:19
PROVIDERS: Family Medicine; Internal Medicine; Nurse Practitioner; Nurse Practitioner Family; ADMIT Internal Medicine
PROC: 0DB88ZX Excision of Small Intestine, Via Natural or Artificial Opening Endoscopic, Diagnostic (ICD-10-PCS; principal; 2016-11-20)
DX: R19.7 Diarrhea, unspecified (principal); G93.40 Encephalopathy, unspecified; N17.9 Acute kidney failure, unspecified; J18.1 Lobar pneumonia, unspecified organism; J90 Pleural effusion, not elsewhere classified; I95.9 Hypotension, unspecified; E10.22 Type 1 diabetes mellitus with diabetic chronic kidney disease; I12.9 Hypertensive chronic kidney disease with stage 1 through stage 4 chronic kidney disease, or unspecified chronic kidney disease; N18.3 Chronic kidney disease, stage 3 (moderate); Z79.4 Long term (current) use of insulin; E78.5 Hyperlipidemia, unspecified; E87.6 Hypokalemia; E83.42 Hypomagnesemia; I35.0 Nonrheumatic aortic (valve) stenosis; E66.9 Obesity, unspecified; Z68.33 Body mass index [BMI] 33.0-33.9, adult; G47.33 Obstructive sleep apnea (adult) (pediatric)
CPT/HCPCS: A9541; C1751; C9113; J1200; J1644; J2001; J2405; J2550; J2920; J3475; J3480; J7030; J7042; J7050; J7060; J7512; P9045

== ENCOUNTER → 2016-11-29 | Outpatient (CLI) | payer MEDICARE, OTHER ==
[~2016-11-29] MED LIST changes: +CLONIDINE HCL0.1 MG PO; +COLESTID1 G1 PO; +METAMUCIL PACKE1 PKT PO; +PROBIOTIC1 EAC1 PO
== END | disposition disaster alternative care site (69) ==
LOC: GAMB 13:16
DX: R19.7 Diarrhea, unspecified (principal); E11.9 Type 2 diabetes mellitus without complications; Z79.4 Long term (current) use of insulin; Z79.899 Other long term (current) drug therapy
CPT/HCPCS: A0425; A0426